=== PATIENT | female | born 1955 | race Caucasian/White ===

== ENCOUNTER 2017-04-07 11:05 | Inpatient (IN) | payer OTHER ==
[~2017-04-07] VITALS: Ht 154.9 cm; Wt 66.4 kg
[~2017-04-07 11:05] MED LIST: ADVAIR DISKUS1 UNIT INH; AMITRIPTYLINE100 M1 PO; ASPIRIN EC81 M1 PO; ATORVASTATIN CA40 M1 PO; BENZTROPINE MESY1 M1 PO; HYDRODIURIL 2525 MG PO; LAMICTAL XR100 M1 PO; LAMOTRIGINE200 MG PO; LYRICA200 MG PO; LYRICA75 M1 PO; PROTONIX40 M3 PO; RISPERDAL1 M1 PO; SIMVASTATIN40 MG PO; SYMBICORT 16010.2 GM INH; TOPAMAX100 M1 PO; TRAMADOL HYDROC50 MG PO; TRAZODONE HCL100 M1 PO; TRAZODONE HCL50 MG PO; VITAMIN B6200 M1
[2017-04-07 12:02] LABS: ABSOLUTE BASOPHIL COUNT 0 /CUMM (0.0-0.2); ABSOLUTE EOSINOPHIL COUNT 0.1 /CUMM (0.0-0.7); ABSOLUTE GRANULOCYTE CT 6.3 /CUMM (1.4-6.5); ABSOLUTE LYMPH COUNT 0.9 /CUMM (1.2-3.4); ABSOLUTE MONOCYTE COUNT 0.5 /CUMM (0.10-0.60); BASOPHIL % 0.3 % (0.0-2.0); EOSINOPHIL % 1.3 % (0-5); HEMATOCRIT 36.7 % (37-47); MEAN CORPUSCULAR HGB 36.5 PG (27.0-31.0); MEAN CORPUSCULAR HGB CONC 34.2 G/DL (33.0-37.0); MEAN PLATELET VOLUME 7.1 FL (7.4-10.4); PLATELET COUNT 262 /CUMM (130-400); RBC DISTRIBUTION WIDTH 14.9 % (11.5-14.5); RED BLOOD CELL CT 3.43 /CUMM (4.20-5.40); WHITE BLOOD CELL COUNT 7.8 /CUMM (4.8-10.8)
[2017-04-07] MEDS ORDERED: ADVAIR 250-501 EACH INH (12:06)
[2017-04-07] MEDS ORDERED: LYRICA75 M1 PO (12:08)
[2017-04-07] MEDS ORDERED: OXYCODONE HCL5 M1 PO (12:08)
[2017-04-07] MEDS ORDERED: MIRALAX17 G1 PO (12:09)
[2017-04-07] MEDS ORDERED: PROCHLORPERAZIN10 MG PO (12:10)
[2017-04-07] MEDS ORDERED: SIMVASTATIN40 M1 PO (12:11)
[2017-04-07] MEDS ORDERED: TRAMADOL HCL50 M1 PO (12:12)
--- NOTE | 2017-04-07 12:35 | ED PSYCHIATRIC COMPLAINT ---
History of Present Illness General Chief Complaint: Psychiatric Related Complaint Stated Complaint: BIBA SI Source: patient, old records, EMS Exam Limitations: no limitations Vital Signs & Intake/Output Vital Signs & Intake/Output Vital Signs Date Time Temp Pulse Resp B/P B/P Pulse O2 O2 Flow FiO2 Mean Ox Delivery Rate 04/08 0649 97.7 69 16 125/61 98 Room Air 04/08 0107 98.5 73 18 120/70 95 Room Air 04/07 2245 98.1 73 18 115/45 95 Room Air 04/07 2045 98.4 82 18 113/59 98 Room Air 04/07 1846 98.4 69 19 127/55 97 Room Air 04/07 1440 97.8 70 15 122/60 98 Room Air 04/07 1109 97.7 96 18 105/53 98 Room Air ED Intake and Output 04/08 0000 04/07 1200 Intake Total Output Total 200 Balance -200 Output, Urine 200 Allergies Coded Allergies: codeine (Intermediate, ITCHING 04/07/17) buspirone (From BUSPAR) (CANT SPEAK 04/07/17) lurasidone (From LATUDA) (SEIZURE 04/07/17) Reconcile Medications Aspirin (Ecotrin*) 81 MG TABLET.DR 1 TAB PO DAILY HEART HEALTH (Reported) Benztropine Mesylate 1 MG TABLET 1 TAB PO BID MENTAL HEALTH (Reported) Budesonide/Formoterol Fumarate (Symbicort 160-4.5 Mcg Inhaler) 160 MCG-4.5 MCG/ ACTUATION HFA.AER.AD 2 PUF INH BID COPD (Reported) Fluticasone/Salmeterol (Advair 250-50 Diskus) 250 MCG-50 MCG/DOSE BLST.W.DEV 1 PUF INH BID BREATHING PROBLEMS (Reported) Lamotrigine (Lamictal XR) 100 MG TAB.ER.24 1 TAB PO QPM MENTAL HEALTH ( Reported) Oxycodone HCl 5 MG TABLET 1-2 TAB PO Q4 HRS NEEDED PRN PAIN (Reported) Pantoprazole Sodium (Protonix) 40 MG TABLET.DR 1 TAB PO DAILY GERD (Reported) Polyethylene Glycol 3350 (Miralax) 17 GRAM POWD.PACK 1 PAC PO DAILY CONSTIPATION (Reported) dissolve in water Pregabalin (Lyrica) 75 MG CAPSULE 1 CAP PO BID PAIN (Reported) Prochlorperazine Maleate 10 MG TABLET 1 TAB PO Q6 PRN NAUSEA/VOMITING ( Reported) Risperidone (Risperdal) 1 MG TABLET 5 TAB PO QPM MENTAL HEALTH (Reported) Simvastatin (Simvastatin*) 40 MG TABLET 1 TAB PO QPM CHOLESTEROL (Reported) Topiramate (Topamax) 100 MG TABLET 1 TAB PO BID MENTAL HEALTH (Reported) Tramadol HCl 50 MG TABLET 1 TAB PO Q6P PRN PAIN (Reported) Trazodone HCl 100 MG TABLET 2 TAB PO QPM SLEEP (Reported) Triage Note: PT TO ED BY AMBULANCE VOLUNTARILY FROM HOME WITH +SI. HAS PLAN TO JUMP OFF HER DECK. UNDERGOING TX FOR LUNG CA. DENIES MEDICAL COMPLAINTS. [facility] CALLED 911 AFTER PT MADE SI COMMENT TO THEM Triage Nurses Notes Reviewed? yes Onset: Just prior to arrival Duration: day(s):, continues in ED, getting worse Timing: recent history Severity: moderate, severe Associated Symptoms: anxiety, impaired concentration, insomnia, suicidal ideation LMP (ages 10-50): post menopausal : No Patient currently breastfeeds: No HPI: Prior to admission patient reports worsening auditory hallucinations commanding her to kill herself with insomnia anorexia difficulty concentrating and fatigue. She denies fever chills nausea vomiting diarrhea abdominal pain chest pain shortness of breath headache dysuria rash bleeding homicidal ideation visual hallucination. (Sly Lowe MD) Past History Travel History Traveled to [place] past 21 day No Medical History Any Pertinent Medical History? 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 No (Sly Lowe MD) Review of Systems Review of Systems Constitutional: Reports: no symptoms. EENTM: Reports: no symptoms. Respiratory: Reports: no symptoms. Cardiovascular: Reports: no symptoms. GI: Reports: no symptoms. Genitourinary: Reports: no symptoms. Musculoskeletal: Reports: no symptoms. Skin: Reports: no symptoms. Neurological/Psychological: Reports: see HPI, anxiety, confusion, depressed. Hematologic/Endocrine: Reports: no symptoms. Immunologic/Allergic: Reports: no symptoms. All Other Systems: Reviewed and Negative (Sly Lowe MD) Physical Exam Physical Exam General Appearance: well developed/nourished, alert, awake, anxious, moderate distress, obese Head: atraumatic, normal appearance Eyes: Bilateral: normal appearance, PERRL, EOMI. 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 yes 1 Depression/Hopelessness? yes 2 Previous Attempts/Psych Care yes 1 Rational Thinking Loss? yes 2 Single//? yes 1 Social Support? has support 0 Stated Future Intent? yes 2 Total 9 SAD PERSONS Done? yes (Sly Lowe MD) Progress Differential Diagnosis: drug intoxication, drug overdose, drug withdrawal, electrolyte abnormality, hypoglycemia Plan of Care: Orders Procedure Date/time Status Admit to inpatient 04/08 1102 Active Continuous Observation Monitor 04/08 0800 Active Regular Diet 04/07 D Active ED CRISIS PSYCH CONSULT 04/07 1218 Active Continuous Observation Monitor 04/07 1147 Active URINE DRUGS OF ABUSE 04/07 1142 Complete ETHANOL 04/07 1142 Complete COMPREHENSIVE METABOLIC PANEL 04/07 1142 Complete CBC WITHOUT DIFFERENTIAL 04/07 1142 Complete Current Medications Sig/Ronnie Start time Last Medication Dose Stop Time Status Admin Atorvastatin Calcium 20 MG 1700 04/08 1700 UNVr 04/07 (Lipitor) 1921 Lamotrigine 100 MG ONCE ONE 04/08 1100 UNVr (LaMICtal) 04/08 1101 Benztropine Mesylate 1 MG BID 04/07 2200 UNVr 04/08 (Cogentin 1 MG 1052 Tablet) Budesonide/ 2 PUF BID 04/07 2199 AC 04/08 Formoterol Fumarate 1052 (Symbicort) Pregabalin 75 MG BID 04/07 2199 UNVr (Lyrica) Risperidone 5 MG QPM 04/07 2199 UNVr 04/07 (Risperidone) 2053 Topiramate 100 MG BID 04/07 2199 UNVr (Topamax) Trazodone HCl 200 MG QPM 04/07 2199 UNVr 04/07 (Desyrel) 2053 Omeprazole 40 MG DAILY 04/07 1806 UNVr (Prilosec) Aspirin Buffered 81 MG DAILY 04/07 1805 UNVr 04/08 (Ecotrin) 1052 Laboratory Tests 04/07/17 1149: Anion Gap 10, Estimated GFR > 60, BUN/Creatinine Ratio 14.3, Glucose 122 H, Calcium 9.5, Total Bilirubin 0.2, AST 11 L, ALT 20, Alkaline Phosphatase 92, Total Protein 6.5, Albumin 3.8, Globulin 2.7, Albumin/Globulin Ratio 1.4, CBC w Diff NO MAN DIFF REQ, RBC 3.43 L, MCV 107.0 H, MCH 36.5 H, MCHC 34.2, RDW 14.9 H, MPV 7.1 L, Gran % 81.0 H, Lymphocytes % 11.5 L, Monocytes % 5.9, Eosinophils % 1.3, Basophils % 0.3, Absolute Granulocytes 6.3, Absolute Lymphocytes 0.9 L, Absolute Monocytes 0.5, Absolute Eosinophils 0.1, Absolute Basophils 0, Serum Alcohol < 10.0 04/07/17 1146: Urine Opiates Screen < 100.00, Methadone Screen < 40, Barbiturate Screen < 60, Ur Phencyclidine Scrn < 6.00, Amphetamines Screen < 100, U Benzodiazepines Scrn < 85, Urine Cocaine Screen < 50, Urine Cannabis Screen < 5.00 04/08 7:08 AM PATIENT SIGNED OUT TO ME BY DR NELSON, PENDING CRISIS EVALUATION. 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 Patient signed out to Dr. Nelson at shift twisting frame changer after an uneventful emergency department stay during the afternoon shift. (Seda BECKER,Phan Nobles) Hand-Off Endorsed To: Elizabeth Kyle MD Endorsed Time: 0700 Pending: consult (Leslie BECKER,Jorge Barry) Departure Departure Disposition: STILL A PATIENT Condition: Stable Clinical Impression Primary Impression: Depression with suicidal ideation Secondary Impressions: Auditory hallucinations Referrals: Judson Montoya MD (PCP/Family) Departure Forms: Customer Survey General Discharge Information (Sly Lowe MD) Departure Time of Disposition: 1103 Psych Admission Note Psychiatric Admission: I have seen and evaluated VANI DONOVAN. I have also reviewed all the pertinent lab results and diagnostic results. VANI DONOVAN will be admitted to our inpatient Psychiatric unit for treatment and care. (Elizabeth Kyle MD) ED Attending Observation Initial Observation Note: I have seen and personally examined VANI DONOAVN on 04/07/17 at 1527. I agree with the current emergency department documentation. The disposition (admission or discharge) is uncertain at this time, she needs a period of observation for the following reason(s): The ED Nurse caring for this patient has been personally informed as to what the patient is being observed for. (Sly Lowe MD)
--- NOTE | 2017-04-07 14:50 | ED PSYCH CRISIS CONSULTATION ---
See Addendum Crisis Consult Basic Assessment Date of Consult: 04/07/17 Responsible Person/Accompanied By: BIBA/Self Insurance Authorization: Insurance #1: Insurance name: MEDICARE WELLCARE Phone number: Policy number: [id number] Group number: [id number] Authorization number: ED Provider: Patient's ED Provider: Sly Lowe MD Primary Care Physician: Patient's PCP: Judson Montoya MD PCP's Chief Complaint: Psychiatric Related Complaint Patient's Quote: "I'm hearing voices to hurt myself." Present Illness: Pt. is a 62 y.o. retired, female BIBA to ED presenting with +SI and hearing command halucinations to hurt herself. Pt. stated that her plan would be to jump off her back porch and that she was very close to doing so today. Pt. reported hearing these voices for the past week and started feeling depressed and anxious at the same time. Pt. rated her level of depression on a scale of 0 to 10 (10 being the most severe) as a 10 and her level of anxiety on a scale of 0 to 10 as an 8. Pt. reported that she had a nervous breakdown at age 25 and heard command hallucinations to hurt herself at the time but the voices stopped at some point. When asked what helped the voices stop, the pt. said she didn't know. Pt. denies HI and VH. Pt. stated she is on Risperidone, Limictal and other meds for moods that she has been compliant with but feels that they aren't currently helping. Pt. stated her meds "shut the voices down" and then she hears the voices when she wakes up in the morning but then stated that she hears the voices all day. Pt. reported decreased appetite and poor sleep due to the voices. Pt. lives with her 32 y.o. son, Quirino, with whom she gets along with and is concerned for her. Pt. stated that she wants inpatient tx. Pt. is currently receiving outpatient tx. at [facility] and has been there for the past 10 years. Pt. noted attending IOP during 2012 but could not recall why she was attending. Pt. also noted attending inpatient unit once in the past for Depression. Pt. reported being diagnosed with MDD and mood disorders. Pt.' s tox. screen was negative and the pt. denies any currenty drug or alcohol use but admits to using in the '. Pt. received SA tx. at [facility] ( [facility] in [place], [place] in 1992 and reported the tx. was helpful. Pt. also finished tx. for Cancer in January 2017. Case reviewed with Dr. Mackenzie who reccomended inpatient tx. Patient's Address: [address] [place] [address] Other Phone Number: Who Do You Live With? Son Family/Informants Interviewed: pt unable to participate Allergies - Coded Allergies: codeine (Intermediate, ITCHING 04/07/17) buspirone (From BUSPAR) (CANT SPEAK 04/07/17) lurasidone (From LATUDA) (SEIZURE 04/07/17) (Misty Duran) Current Medications - Scheduled Medications Aspirin (Ecotrin*) 81 MG TABLET.DR 1 TAB PO DAILY HEART HEALTH (Reported) Entered as Reported by Elma Barba on 09/22/16 1231 Last Taken: 04/08/17 1000 Benztropine Mesylate 1 MG TABLET 1 TAB PO BID MENTAL HEALTH (Reported) Entered as Reported by Elma Barba on 09/22/16 1230 Last Taken: 04/08/17 1000 Budesonide/Formoterol Fumarate (Symbicort 160-4.5 Mcg Inhaler) 160 MCG-4.5 MCG/ ACTUATION HFA.AER.AD 2 PUF INH BID COPD (Reported) Entered as Reported by Elma Barba on 09/22/16 1231 Last Taken: 04/08/17 1000 Fluticasone/Salmeterol (Advair 250-50 Diskus) 250 MCG-50 MCG/DOSE BLST.W.DEV 1 PUF INH BID BREATHING PROBLEMS #60 (Reported) Entered as Reported by Masoud Eisenberg on 04/07/17 1206 Last Taken: 04/07/17 2200 Lamotrigine (Lamictal XR) 100 MG TAB.ER.24 1 TAB PO QPM MENTAL HEALTH ( Reported) Entered as Reported by Elma Barba on 09/22/16 1229 Last Taken: 04/08/17 1300 Pantoprazole Sodium (Protonix) 40 MG TABLET.DR 1 TAB PO DAILY GERD (Reported) Entered as Reported by Elma Barba on 09/22/16 1232 Polyethylene Glycol 3350 (Miralax) 17 GRAM POWD.PACK 1 PAC PO DAILY CONSTIPATION (Reported) Entered as Reported by Masoud Eisenberg on 04/07/17 1209 Last Taken: 04/08/17 1300 Pregabalin (Lyrica) 75 MG CAPSULE 1 CAP PO BID PAIN (Reported) Entered as Reported by Masoud Eisenberg on 04/07/17 1208 Risperidone (Risperdal) 1 MG TABLET 5 TAB PO QPM MENTAL HEALTH (Reported) Entered as Reported by Elma Barba on 09/22/16 1230 Last Taken: 04/07/17 2200 Simvastatin (Simvastatin*) 40 MG TABLET 1 TAB PO QPM CHOLESTEROL (Reported) Entered as Reported by Masoud Eisenberg on 04/07/17 1211 Last Taken: 04/07/17 1700 Topiramate (Topamax) 100 MG TABLET 1 TAB PO BID MENTAL HEALTH (Reported) Entered as Reported by Emla Barba on 09/22/16 1229 Trazodone HCl 100 MG TABLET 2 TAB PO QPM SLEEP (Reported) Entered as Reported by Elma Barba on 09/22/16 1231 Last Taken: 04/07/17 2200 Scheduled PRN Medications Oxycodone HCl 5 MG TABLET 1-2 TAB PO Q4 HRS NEEDED PRN PAIN #100 (Reported ) Entered as Reported by Masoud Eisenberg on 04/07/17 1208 Prochlorperazine Maleate 10 MG TABLET 1 TAB PO Q6 PRN NAUSEA/VOMITING ( Reported) Entered as Reported by Masoud Eisenberg on 04/07/17 1210 Tramadol HCl 50 MG TABLET 1 TAB PO Q6P PRN PAIN (Reported) Entered as Reported by Masoud Eisenberg on 04/07/17 1212 (Johan Lyons LCSW) Past History Past Medical History Neurological: NONE EENT: NONE Cardiovascular: CAD, hypertension Respiratory: COPD, emphysema Gastrointestinal: NONE Hepatic: NONE Renal: NONE Musculoskeletal: NONE Psychiatric: anxiety, depression Endocrine: NONE Blood Disorders: NONE 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 Past Surgical History Surgical History: non-contributory (115) Psychiatric Treatment History Psych Treatment Psychiatric Treatment Yes Inpatient Treatment Yes Outpatient Treatment Yes Location of Treatment [facility] Reason for Treatment Depression Dates of Treatment In: 01/07/12-01/12/12 and 06/01/12-06/07/12 Response to Treatment Unknown Diagnosis by History: Depressive Dis NOS Substance Use/Abuse History Drug Use/Abuse 1 Substances Used/Abused Yes Substance Used/Abused Heroin First Use 28 Last Used 1992 How much used/taken 2 bags How often Weekends For how long Unknown Route of use Unknown Drug Use/Abuse 2 Substances Used/Abused Yes Substance Used/Abused Crack Cocaine First Use 25 Last Used 1992 How much used/taken 2 bags How often Weekends For how long Unknown Route of use Smoke Drug Use/Abuse 3 Substances Used/Abused Yes Substance Used/Abused Marijuana First Use 15 Last Used 1991 How much used/taken 1 joint How often Weekends For how long Unknown Route of use Smoke Substance Abuse Treatment Substance Abuse Treatment Past Substance Abuse [place] Yes Location of Treatment [place], [place] Reason for Treatment Polysubstance Dates of Treatment 1992 Response to Treatment "Helpful" (Misty Duran) Current Mental Status Mental Status Orientation: Person, Place, Situation Affect: Flat Speech: WNL Neuro-vegetative: Appetite Decreased, Sleep Disturbance Appearance Appearance- Dress/Hygiene: Patient was dressed in blue hospital scrubs and wearnig a pink hat. Behaviors Thought Process: WNL Thought Content: Auditory Hallucinations Insight: Fair SI/HI Risk Assessment Current Suicidal Ideation/Att Yes Current Homicidal Ideation/Attempts No Degree of Intent: Plan Danger To: Self Gravely Disabled: Poor Impulse Control, Poor Judgment Risk Factors: high anxiety/distress, SA/MH hospitalized, substance abuse, poor impulse control PTSD Checklist PTSD Done? patient declined ED Management Sitter: Yes Restraints: No (Misty Duran) DSM5/PS Stressors/Medical Prob Diagnosis' (DSM 5, Stressors, Medical): MDD, with psychotic features (F32.3) Opioid Use D/O (F11.20) Stimulant Use D/O (F14.20) Cannabis Use D/O (F12.20) Current GAF: 21 (Misty Duran) Departure Disposition Referrals Judson Montoya MD (PCP/Family) (Misty Duran) Addendum Addendum SW met with the patient for the evening reassessment. The patient was lying in bed, with the covers pulled up to her neck. She states that she continues to feel depressed (rating it a 10 out of 10, 10 being the most severe) and anxious (rating it a 9 out of 10, 10 being the most severe). The patient currently denies any suicidal or homicidal ideation. She continues to endorse command auditory hallucinations, noting that they are negative, swearing and telling her that "they will get her when she goes home." She is aware that the plan is to hold her over night in the ED and to look for an inpatient psychiatric placement in the AM. The case was discussed with and he is in agreement with the plan. (Ajay MUÑOZ,Gladis) Addendum pt seen by crisis this morning for reassessment. Pt continues to verbalize depression, anxiety and AH. Pt continues to express need for inpatient treatment. Case reviewed with Dr Acosta with pt to be admitted to [facility]. Pt in agreement with plan and has signed voluntary admission form. (Eloy MUÑOZ,Johan)
[2017-04-08 14:19] VITALS: BP 106/63
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
--- NOTE | 2017-04-08 14:51 | History & Physical ---
General Information and HPI MD Statement: I have seen and personally examined VANI DONOVAN and documented this H&P. The patient is a 62 year old F who presented with a patient stated chief complaint of hearing voices Source of Information: patient Exam Limitations: no limitations History of Present Illness: 62-year-old female with past medical history significant for anxiety, depression , history of lung cancer status post chemoradiation, history of hyperlipidemia who was admitted to Inpatient Psychiatry with auditory hallucinations. Patient claims that she was hearing voices that were telling her to kill herself. She also had a plan and wants to jump out of the second floor from her building. She did not implement the plan. She thinks that her medications are not working and need to be changed. She has no homicidal ideation. She currently denies any aches or pains. She has no fevers or chills, cough or shortness of breath. She denies any urinary problems. She claims that she follows with Dr. Yi from oncology and has been told that that the cancer has not metastasized and that she has completed the treatment for now. Allergies/Medications Allergies: Coded Allergies: codeine (Intermediate, ITCHING 04/07/17) buspirone (From BUSPAR) (CANT SPEAK 04/07/17) lurasidone (From LATUDA) (SEIZURE 04/07/17) Home Med list Aspirin (Ecotrin*) 81 MG TABLET.DR 1 TAB PO DAILY HEART HEALTH (Reported) Benztropine Mesylate 1 MG TABLET 1 TAB PO BID MENTAL HEALTH (Reported) Budesonide/Formoterol Fumarate (Symbicort 160-4.5 Mcg Inhaler) 160 MCG-4.5 MCG/ ACTUATION HFA.AER.AD 2 PUF INH BID COPD (Reported) Fluticasone/Salmeterol (Advair 250-50 Diskus) 250 MCG-50 MCG/DOSE BLST.W.DEV 1 PUF INH BID BREATHING PROBLEMS (Reported) Lamotrigine (Lamictal XR) 100 MG TAB.ER.24 1 TAB PO QPM MENTAL HEALTH ( Reported) Oxycodone HCl 5 MG TABLET 1-2 TAB PO Q4 HRS NEEDED PRN PAIN (Reported) Pantoprazole Sodium (Protonix) 40 MG TABLET.DR 1 TAB PO DAILY GERD (Reported) Polyethylene Glycol 3350 (Miralax) 17 GRAM POWD.PACK 1 PAC PO DAILY CONSTIPATION (Reported) dissolve in water Pregabalin (Lyrica) 75 MG CAPSULE 1 CAP PO BID PAIN (Reported) Prochlorperazine Maleate 10 MG TABLET 1 TAB PO Q6 PRN NAUSEA/VOMITING ( Reported) Risperidone (Risperdal) 1 MG TABLET 5 TAB PO QPM MENTAL HEALTH (Reported) Simvastatin (Simvastatin*) 40 MG TABLET 1 TAB PO QPM CHOLESTEROL (Reported) Topiramate (Topamax) 100 MG TABLET 1 TAB PO BID MENTAL HEALTH (Reported) Tramadol HCl 50 MG TABLET 1 TAB PO Q6P PRN PAIN (Reported) Trazodone HCl 100 MG TABLET 2 TAB PO QPM SLEEP (Reported) Past History Travel History Traveled to [place] past 21 day No Medical History Neurological: NONE EENT: NONE Cardiovascular: CAD, hypertension Respiratory: COPD, emphysema Gastrointestinal: NONE Hepatic: NONE Renal: NONE Musculoskeletal: NONE Psychiatric: anxiety, depression Endocrine: NONE Blood Disorders: NONE Cancer(s): R LUNG CA SAP ADMINISTRATOR/Reproductive: NONE History of MRSA: No History of VRE: No History of CDIFF: No Isolation History: Standard Influenza Vaccine: 03/10/17 Surgical History Surgical History: non-contributory (115) Past Family/Social History Family History Relations & Conditions if any MOTHER Relation not specified for: FH: cancer Psychosocial History Where do you live? Home ETOH Use: denies use Illicit Drug Use: denies illicit drug use Review of Systems Review of Systems Constitutional: Reports: see HPI. EENTM: Reports: see HPI. Cardiovascular: Reports: see HPI. Respiratory: Reports: see HPI. GI: Reports: see HPI. Musculoskeletal: Reports: see HPI. Neurological/Psychological: Reports: see HPI. Exam & Diagnostic Data Last 24 Hrs of Vital Signs/I&O Vital Signs Date Time Temp Pulse Resp B/P B/P Pulse O2 O2 Flow FiO2 Mean Ox Delivery Rate 04/08 1419 98.0 78 106/63 04/08 1322 97.9 83 20 118/56 97 04/08 0649 97.7 69 16 125/61 98 Room Air 04/08 0107 98.5 73 18 120/70 95 Room Air 04/07 2245 98.1 73 18 115/45 95 Room Air 04/07 2045 98.4 82 18 113/59 98 Room Air 04/07 1846 98.4 69 19 127/55 97 Room Air Intake & Output 04/08 1600 04/08 0800 04/08 0000 Intake Total Output Total Balance Patient 146 lb Weight Physical Exam General Appearance Alert, Oriented X3, Cooperative, No Acute Distress Skin No Rashes HEENT PERRLA Neck Supple Cardiovascular Regular Rate, Normal S1, Normal S2 Lungs Clear to Auscultation Abdomen Normal Bowel Sounds, Soft, No Tenderness Neurological Cranial Nerves II through XII: Intact Last 24 Hrs of Labs/Vishal: Laboratory Tests 04/07 04/07 1149 1146 Chemistry Sodium (137 - 145 mmol/L) 141 Potassium (3.5 - 5.1 mmol/L) 3.9 Chloride (98 - 107 mmol/L) 104 Carbon Dioxide (22 - 30 mmol/L) 27 Anion Gap (5 - 16) 10 BUN (7 - 17 mg/dL) 10 Creatinine (0.5 - 1.0 mg/dL) 0.7 Estimated GFR (>60 ml/min) > 60 BUN/Creatinine Ratio (7 - 25 %) 14.3 Glucose (65 - 99 mg/dL) 122 H Calcium (8.4 - 10.2 mg/dL) 9.5 Total Bilirubin (0.2 - 1.3 mg/dL) 0.2 AST (14 - 36 U/L) 11 L ALT (9 - 52 U/L) 20 Alkaline Phosphatase (<127 U/L) 92 Total Protein (6.3 - 8.2 g/dL) 6.5 Albumin (3.5 - 5.0 g/dL) 3.8 Globulin (1.9 - 4.2 gm/dL) 2.7 Albumin/Globulin Ratio (1.1 - 2.2 %) 1.4 Hematology CBC w Diff NO MAN DIFF REQ WBC (4.8 - 10.8 /CUMM) 7.8 RBC (4.20 - 5.40 /CUMM) 3.43 L Hgb (12.0 - 16.0 G/DL) 12.5 Hct (37 - 47 %) 36.7 L MCV (81.0 - 99.0 FL) 107.0 H MCH (27.0 - 31.0 PG) 36.5 H MCHC (33.0 - 37.0 G/DL) 34.2 RDW (11.5 - 14.5 %) 14.9 H Plt Count (130 - 400 /CUMM) 262 MPV (7.4 - 10.4 FL) 7.1 L Gran % (42.2 - 75.2 %) 81.0 H Lymphocytes % (20.5 - 51.1 %) 11.5 L Monocytes % (1.7 - 9.3 %) 5.9 Eosinophils % (0 - 5 %) 1.3 Basophils % (0.0 - 2.0 %) 0.3 Absolute Granulocytes (1.4 - 6.5 /CUMM) 6.3 Absolute Lymphocytes (1.2 - 3.4 /CUMM) 0.9 L Absolute Monocytes (0.10 - 0.60 /CUMM) 0.5 Absolute Eosinophils (0.0 - 0.7 /CUMM) 0.1 Absolute Basophils (0.0 - 0.2 /CUMM) 0 Toxicology Urine Opiates Screen (>2000 NG/ML) < 100.00 Methadone Screen (>300 NG/ML) < 40 Barbiturate Screen (>200 NG/ML) < 60 Ur Phencyclidine Scrn (>25 NG/ML) < 6.00 Amphetamines Screen (>1000 NG/ML) < 100 U Benzodiazepines Scrn (>200 NG/ML) < 85 Urine Cocaine Screen (>300 NG/ML) < 50 Urine Cannabis Screen (>50 NG/ML) < 5.00 Serum Alcohol (<10 MG/DL) < 10.0 Assessment/Plan Assessment: 62-year-old female with past medical history significant for anxiety, depression , history of lung cancer status post chemoradiation, history of hyperlipidemia who was admitted to Inpatient Psychiatry with auditory hallucinations. I have reviewed her blood work. Patient will be continued on her inhalers, atorvastatin, aspirin. I jace leave the psych management up to psychiatrist. As Ranked By This Provider Problem List: 1. Auditory hallucinations 2. Lung cancer 3. Hyperlipidemia 4. Anxiety 5. Depression with suicidal ideation Miscellaneous Miscellaneous Documentation Attending Case Discussed With: Saundra Jiménez M.D. Primary Care Physician: Judson Montoya MD Patient sees these Specialists Psychiatrist Level of Patient Care: RYAN Zhu
[2017-04-08 15:47] VITALS: BP 111/65
[2017-04-08 19:49] VITALS: BP 110/56
[2017-04-09 07:41] VITALS: BP 108/56
--- NOTE | 2017-04-09 10:12 | CPS PROVIDER INIT ASMT PSYCH ---
Psychiatric Admission Dynamic Balancer Set Up Worker's Note Reviewed: Yes Patient Seen and Examined: Yes Identifying Information: Pt. is a 62 y.o. retired, female BIBA to ED presenting with +SI and hearing command halucinations to hurt herself. Chief Complaint: "I'm hearing voices to hurt myself." Reaction to Hospitalization: Voluntary admission History of Present Illness Onset of Illness: The patient has been under the care of care for the past 10 years. The onset of the current episode seems to have been more recent, the patient reported that she was experiencing command hallucinations with commands to jump out of her back porch. She reported that the voices started about a week before her presentation to the emergency department and they were progressively getting worse. Circumstances Leading to Admission: Command hallucinations and thoughts of suicide. Problem(s) Justifying Need for Admission: Hearing voices to suicide Other HPI: The patient reported that she had a nervous breakdown at age 25. And she has been in psychiatric treatment pretty much since Past Psychiatric History Past Diagnosis(es)- if any: Reportedly the previous diagnoses included major depressive disorder, severe with psychotic features Opioid use this use disorder in full sustained remission and Stimulant use disorder in full sustained remission and Cannabis use disorder in full sustained remission Past Precipitating Factors- if any: Psychosocial stress - Include inpatient and outpatient treatment Treatment History: The patient reported that her psychiatric history dates back to age 25 when she had her first nervous breakdown. Inpt at [facility]: 01/07/12-01/12/12 and 06/01/12-06/07/12 The patient has been with care for the past 10 years. The patient has had previous treatment with [facility]'s intensive outpatient program. History of Suicide Attempts or Gestures Patient denied history of prior suicide attempts Substance Abuse History: Patient has has history of multiple substance use disorder but she reportedly has been abstinent for more than 10 years now Allergies: Coded Allergies: codeine (Intermediate, ITCHING 04/07/17) buspirone (From BUSPAR) (CANT SPEAK 04/07/17) lurasidone (From LATUDA) (SEIZURE 04/07/17) Home Med List: Benztropine Mesylate 1 MG TABLET 1 TAB PO BID MENTAL HEALTH (Reported) Entered as Reported by Elma Barba on 09/22/16 1230 Last Taken: 04/08/17 1000 Budesonide/Formoterol Fumarate (Symbicort 160-4.5 Mcg Inhaler) 160 MCG-4.5 MCG/ ACTUATION HFA.AER.AD 2 PUF INH BID COPD (Reported) Entered as Reported by Elma Barba on 09/22/16 1231 Last Taken: 04/08/17 1000 Fluticasone/Salmeterol (Advair 250-50 Diskus) 250 MCG-50 MCG/DOSE BLST.W.DEV 1 PUF INH BID BREATHING PROBLEMS #60 (Reported) Entered as Reported by Masoud Eisenberg on 04/07/17 1206 Last Taken: 04/07/17 2200 Lamotrigine (Lamictal XR) 100 MG TAB.ER.24 1 TAB PO QPM MENTAL HEALTH ( Reported) Entered as Reported by Elma Barba on 09/22/16 1229 Last Taken: 04/08/17 1300 Pantoprazole Sodium (Protonix) 40 MG TABLET.DR 1 TAB PO DAILY GERD (Reported) Entered as Reported by Elma Barba on 09/22/16 1232 Polyethylene Glycol 3350 (Miralax) 17 GRAM POWD.PACK 1 PAC PO DAILY CONSTIPATION (Reported) Entered as Reported by Masoud Eisenberg on 04/07/17 1209 Last Taken: 04/08/17 1300 Pregabalin (Lyrica) 75 MG CAPSULE 1 CAP PO BID PAIN (Reported) Entered as Reported by Masoud Eisenberg on 04/07/17 1208 Risperidone (Risperdal) 1 MG TABLET 5 TAB PO QPM MENTAL HEALTH (Reported) Entered as Reported by Elma Barba on 09/22/16 1230 Last Taken: 04/07/17 2200 Simvastatin (Simvastatin*) 40 MG TABLET 1 TAB PO QPM CHOLESTEROL (Reported) Entered as Reported by Masoud Eisenberg on 04/07/17 1211 Last Taken: 04/07/17 1700 Trazodone HCl 100 MG TABLET 2 TAB PO QPM SLEEP - Include any medical condition(s) that may - impact the patient's recovery/remission Past Medical History: The patient reported that she is done with her cancer treatment. 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 History of MRSA: No History of VRE: No History of CDIFF: No Isolation History: Standard Influenza Vaccine: 03/10/17 Surgical History Surgical History: none Psychiatric Family/Social Hx Family History Psychiatric Illness: Patient's mother and father suffered from depression and anxiety The patient's son suffers from depression and the patient was not sure if he was also diagnosed with schizophrenia Substance Use: The patient's father was an alcoholic Suicides: The patient denied completed suicides in the family Social History Living Situation: Patient lives with her adult son Significant Relationships (family/friends): The patient's adult son Education: Some college Vocation/Occupation: Currently unemployed Legal: Denied legal entanglements Healthly Behaviors Screening Tobacco Screening Tobacco Use from ED Docu: Current Daily Use Daily Tobacco Use Amount/Type: =< 4 Cigarettes daily - If tobacco counseling indicated - the following topics are required. - #1 Recognizing dangerous situations. - #2 Coping Skills. - #3 Basic information about quitting. Status of Tobacco Cessation Counseling: #1, #2 AND #3 Completed Cessation Med Status Nicotine Gum Ordered Alcohol Screening - ETOH screen POS if BAL >=80 or Audit-C>= M4/F3 Audit-C Score from Diag Assess: 0 Blood Alcohol Level: Laboratory Tests 04/07 1149 Toxicology Serum Alcohol (<10 MG/DL) < 10.0 Alcohol Use Screening Results: Neg per Audit C &/or BAL - If ETOH counseling indicated - the following topics are required. - #1 Express concern about the patient's - drinking at unhealthy levels, include informing - of national norms for moderate drinking: - men <= 14 drinks/week, max 4 drinks/occasion - women <= 7 drinks/week, max 3 drinks/occasion - #2 Providing feedback, including linking alcohol to - negative physical effects (liver injury, hypertension) - negative emotional effects (relationship problems and - depression) - negative occupational consequences (reduced work - performance) - #3 Advising the patient to abstain from alcohol or - to drink below national norms for moderate drinking - (as listed above). Status of ETOH Use Counseling: N/A B/C NO ETOH Use Metabolic Screening - Screen if on a Neuroleptic Medication - Metabolic screening should include: - Blood Pressure, BMI, Glucose or Hgb A1c, & a - Lipid profile from within the past 365 days. Metabolic Screening Patient on a neuroleptic(s) . Enter below results for Hemoglobin A1C, and lipid panel if obtained during the last 365 days. BMI: 27.600 Blood Pressure: 108/56 Laboratory Results From [facility] (If applicable): Lab Cholesterol 145 MG/DL 02/19/17 0850 HDL Cholesterol 38 mg/dL L 02/19/17 0850 Hemoglobin A1c 5.6 % 02/19/17 0850 LDL Cholesterol, Calc 80 mg/dL 02/19/17 0850 Triglycerides 138 mg/dL 02/19/17 0850 Exam and Plan Mental Status Examination Ambulation Status: Steady gait Appearance: Patient was a woolen hat due to hair loss from chemotherpay Attitude towards examiner: Calm and cooperative Psychomotor activity: Normal psychomotor activity for age Behavior: No abnormal behaviors, no bizarre behaviors Quality of speech: Normal speech, not pressured, not slurred Affect: Constricted affect Mood: Depression 10 out of 10 anxiety 8 out of 10 Suicidal Ideation: Denied it was thoughts of suicide, she said it was command hallucinations of suicide. Homicidal Ideation: Denied violent thoughts or homicidal ideation Hallucinations: She hears a man's voice Paranoid/Delusional Material: She denies feeling paranoid, there were no delusions during the interview Difficulties with thought organization: There were no difficulties with thought organization Insight: Good insight Judgment: Good judgment Orientation: Alert and oriented to time place and person Cognition: The patient showed reasonably good attention and concentration and information processing Memory Function: There was no evidence of short-term memory impairment during the interview Estimate of intellectual functioning: Average Assets/Strengths Patient Identified Assets/Strengths: The patient is likable and honest Impression/Plan Impression and Plan: 62-year-old white female who was admitted to the inpatient psychiatric unit for reporting hearing a voice telling her to kill herself - Include all active medical diagnosis that require tx DSM 5 Diagnosis(es): 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 Factors: None identified
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
[2017-04-09 12:38] VITALS: BP 102/62
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
[2017-04-09 15:49] VITALS: BP 99/66
[2017-04-09 19:44] VITALS: BP 111/66
--- NOTE | 2017-04-10 07:46 | CP SOUTH PROGRESS NOTE PSYCH ---
Psych (Inpt) Progress Note Progress Note Vital Signs on 04/10/2017: Blood Pressure: 126/70mmHg; Pulse: 96/min. Temperature: 97.6 F Progress and treatment plan was discussed in the treatment team meeting this morning. The treatment team meeting included nursing staff, social work staff, group , activity , and milieu therapy staff (OTR/L) and psychiatrist. Mental Status Examination The patient was alert and oriented to time place and person. She reported that the last time she had hallucinations was last night. She reported that she is the same voice that she has been hearing which is a man's voice. She reported that the voice was cursing and using profanities. Patient was a woolen hat due to hair loss from chemotherapy. Her speech was normal , she was calm and cooperative. She showed normal psychomotor activity for age, there were no abnormal behaviors, no bizarre behaviors, Her affect was constricted, continues to report depression but she is reporting relative improvement She also reported relative improvement with her anxiety level. She denied thoughts of suicide in the past 24 hours she again clarified that she was not having thoughts of suicide and it was the command hallucinations that there are that were telling her to commit suicide as well as cursing her and using profanities. Denied violent thoughts or homicidal ideation, denies feeling paranoid, there were no delusions during the interview, there were no difficulties with thought organization, good insight, Good judgment, reasonably good attention and concentration and information processing, there was no evidence of short-term memory impairment during the interview Summary and risk assessment: 62-year-old white female who was admitted to the inpatient psychiatric unit for reporting hearing a voice telling her to kill herself Identified risk factors: Recent command hallucinations, with commands to kill self. Protective factors and risk mitigating factors: 1) Female, 2) Does not abuse alcohol or drugs No access to guns W She is not in a chronic severe pain The patient does not have history of previous suicide attempts There is no family history of completed suicides Diagnosis(es): F28: Other Specified Schizophrenia-Spectrum & Other Psychotic Disorder Treatment Plan Update: 1) Resume Lamotrigine 100 mg BID (may have been not continued in error ??) 2) Increase Zyprexa to 7.5 mg at bedtime 3) Reduce Risperidone to 3 mg at bedtime 4) Continue inpatient psychiatric care/safety checks every 15 minutes Nursing assessments, Vital signs, and Patient education Group therapy, Milieu therapy SUPERVISOR DISPLAY FABRICATION: biopsychosocial assessment, aftercare planning/ collateral information Psychiatrist to evaluate the patient's mental status daily and monitor medications daily Psychiatrist to evaluate the patient's mental status daily and monitor medications daily
[2017-04-10 08:09] VITALS: BP 126/70
[2017-04-10 12:11] VITALS: BP 114/68
--- NOTE | 2017-04-10 13:35 | SOCIAL WORKER PROG NOTE PSYCH ---
Social Work Progress Note Progress Note Deisy's son called to reschedule the family meeting. We rescheduled for Thursday 04/13 at 10am. He did confirm that there has been some difficult issues with the upstairs neighbors and that they had tried to kick in their door. He also said they were threatened. He shared that his Mom was very upset by everything that was going on and that frightened him. Spoke with Brianda Hammond at [facility] who also confirmed with their staff that there has been ongoing problems with neighbors. [facility] called the police and DCF. Met with Deisy this afternoon. She said she continues to hear the same voice. She said the voice has been swearing today. It seems to happen when she 's alone. She's been trying to combat it by talking to people and staying busy. She reports not sleeping too well last night. Complained of acid reflux. She is hoping the change in medicine will help with her symptoms. Reports no SI today. We talked about her considering a transition to IOP once she is discharged. She didn't seem interested and said she would rather not. She said she will think about it and let me know if she changes her mind. She is interested in me gathering more information from [facility] about the support group offered.
[2017-04-10 15:53] VITALS: BP 114/57
[2017-04-10 19:43] VITALS: BP 133/69
[2017-04-11 07:53] VITALS: BP 109/80
--- NOTE | 2017-04-11 11:39 | CP SOUTH PROGRESS NOTE PSYCH ---
Psych (Inpt) Progress Note Progress Note Include the following elements, when applicable: Involvement in the active treatment of the patient with behavioral observations of the patient and the patient's response to the treatment. Review of the ongoing treatment process in the context of the treatment plan. Indication of how multi-disciplinary staff members are carrying out the treatment plan. Plans for future interventions and recommendations for revision of the treatment plan. Liaison with other physicians/providers. Progress Note: Pt notes that she is feeling better this morning. AHs have occured throughout hospitalization but feels none this morning. She reports sleeping well. Denies SI or HI. Current Medications Sig/Ronnie Start time Last Medication Dose Route Stop Time Status Admin Acetaminophen 650 MG Q6P PRN 04/08 1200 AC PO Al Hydroxide/Mg 30 ML Q4-6 PRN PRN 04/08 1200 AC Hydroxide PO Albuterol Sulfate 2 PUF Q6P PRN 04/08 1200 AC INH Aspirin Buffered 81 MG DAILY@0800 04/09 0800 AC 04/11 PO 0819 Atorvastatin Calcium 20 MG 17004/08 1700 AC 04/10 PO 1704 Benztropine Mesylate 0.5 MG BID 04/08 2200 AC 04/11 PO 0819 Benztropine Mesylate 1 MG Q6P PRN 04/08 1200 AC PO Budesonide/ 2 PUF BID 04/08 2200 AC 04/11 Formoterol Fumarate INH 0819 Haloperidol 5 MG Q6P PRN 04/08 1200 AC PO Lamotrigine 100 MG BID 04/10 1012 AC 04/11 PO 0819 Lorazepam 1 MG Q6-PRN PRN 04/08 1500 AC PO Magnesium Hydroxide 30 ML AT BEDTIME PRN 04/08 1200 AC PO Nicotine 2 MG Q2 HRS NEEDED PRN 04/08 1500 AC PO Olanzapine 7.5 MG 22004/10 2200 AC 04/10 PO 2128 Polyethylene Glycol 17 GM DAILY@0804/08 1215 AC 04/11 PO 0819 Risperidone 3 MG QPM 04/10 220 AC 04/10 PO 2128 Trazodone HCl 150 MG QPM 04/08 220 AC 04/10 PO 2128 Vital Signs Date Time Temp Pulse Resp B/P B/P Pulse O2 O2 Flow FiO2 Mean Ox Delivery Rate 04/11 0753 97.3 97 109/80 04/10 1942 98.6 87 133/69 04/10 1553 81 114/57 04/10 1211 84 114/68 MSE General appearance: good hygiene and grooming though with wool hat one; Attitude: cooperative; Eye contact: appropriate; Movement: no psychomotor agitation or slowing; Speech: nl fluency, nl rate/rhythm, nl volume, nl prosody; Mood: "better" Affect: flat, appropriate, constricted, non-labile, congruent; Thought process: linear and goal-directed; Thought content: denied SI or HI, no paranoid ideation; Perception:+ hallucinations- auditory of voices saying curse words about her, denied visual, does not appear to be responding to internal stimuli; I/J: limited A/P: Pt with MDD with SI with psychotic features with improved psychotic sx. -Continue current medication regimen -Encourage integration into the milieu
[2017-04-11 12:11] VITALS: BP 102/65
[2017-04-11 15:39] VITALS: BP 110/57
[2017-04-11 19:47] VITALS: BP 121/61
[2017-04-12 07:29] VITALS: BP 106/62
--- NOTE | 2017-04-12 11:36 | CP SOUTH PROGRESS NOTE PSYCH ---
Psych (Inpt) Progress Note Progress Note Include the following elements, when applicable: Involvement in the active treatment of the patient with behavioral observations of the patient and the patient's response to the treatment. Review of the ongoing treatment process in the context of the treatment plan. Indication of how multi-disciplinary staff members are carrying out the treatment plan. Plans for future interventions and recommendations for revision of the treatment plan. Liaison with other physicians/providers. Progress Note: Pt notes that she is "better" today than yesterday. She continues to have AHs but much less loud and distressing. She notes that she slept well. Feels meds have been extremely helpful. Current Medications Sig/Ronnie Start time Last Medication Dose Route Stop Time Status Admin Acetaminophen 650 MG Q6P PRN 04/08 1200 AC PO Al Hydroxide/Mg 30 ML Q4-6 PRN PRN 04/08 1200 AC Hydroxide PO Albuterol Sulfate 2 PUF Q6P PRN 04/08 1200 AC INH Aspirin Buffered 81 MG DAILY@04/09 0800 AC 04/12 PO 0746 Atorvastatin Calcium 20 MG 17004/08 1700 AC 04/11 PO 1559 Benztropine Mesylate 0.5 MG BID 04/08 2200 AC 04/12 PO 0746 Benztropine Mesylate 1 MG Q6P PRN 04/08 1200 AC PO Budesonide/ 2 PUF BID 04/08 2200 AC 04/12 Formoterol Fumarate INH 0747 Haloperidol 5 MG Q6P PRN 04/08 1200 AC PO Lamotrigine 100 MG BID 04/10 1012 AC 04/12 PO 0746 Lorazepam 1 MG Q6-PRN PRN 04/08 1500 AC PO Magnesium Hydroxide 30 ML AT BEDTIME PRN 04/08 1200 AC PO Nicotine 2 MG Q2 HRS NEEDED PRN 04/08 1500 AC PO Olanzapine 7.5 MG 04/10 2200 AC 04/11 PO 2117 Polyethylene Glycol 17 GM DAILY@0804/08 1215 AC 04/12 PO 0746 Risperidone 3 MG QPM 04/10 220 AC 04/11 PO 211 Trazodone HCl 150 MG QPM 04/08 220 AC 04/11 PO 211 Vital Signs Date Time Temp Pulse Resp B/P B/P Pulse O2 O2 Flow FiO2 Mean Ox Delivery Rate 04/12 728 96.5 99 106/62 04/11 1947 97.8 89 121/61 04/11 1539 88 110/57 04/11 1211 96 102/65 MSE General appearance: good hygiene and grooming though with wool hat one; Attitude: cooperative; Eye contact: appropriate; Movement: no psychomotor agitation or slowing; Speech: nl fluency, nl rate/rhythm, nl volume, nl prosody; Mood: "better, even better" Affect: flat, appropriate, constricted, non-labile, congruent; Thought process: linear and goal-directed; Thought content: denied SI or HI, no paranoid ideation; Perception:+ hallucinations- auditory of voices saying curse words about her, but lower volume denied visual, does not appear to be responding to internal stimuli; I/J: limited A/P: Pt with MDD with SI with psychotic features with improved psychotic sx. -Continue current medication regimen -Encourage integration into the milieu
[2017-04-12 11:56] VITALS: BP 102/50
[2017-04-12 15:25] VITALS: BP 107/60
[2017-04-12 19:22] VITALS: BP 110/56
[2017-04-13 07:54] VITALS: BP 99/54
--- NOTE | 2017-04-13 08:58 | CP SOUTH PROGRESS NOTE PSYCH ---
Psych (Inpt) Progress Note Progress Note Vital Signs Date Time Temp Pulse B/P O2 Flow FiO2 Rate 04/13 0754 97.5 81 99/54 04/12 1922 98.6 83 110/56 04/12 1525 83 107/[address] Theodore's notes for the weekend of April 11 and April 12, 2017 The treatment team reviewed the patient's progress and treatment plan, and aftercare plan, and the team meeting this morning. The treatment team included: Nursing staff, social work staff, group and activity therapy staff, and psychiatrist MANUEL Olivas was alert, and she was oriented to time, place, and person. She showed good hygiene and grooming. She was calm and cooperative; There were no abnormal movements, no psychomotor agitation or slowing; Speech: nl fluency, nl rate/rhythm, nl volume, nl prosody; The patient reported that her mood has been "good"/she denied feeling too depressed, reported that her anxiety is low and manageable Affect: congruent; Thought process was linear and goal-directed; Deisy denied SI or HI, no paranoid ideation; Deisy reported significant reduction in hallucinations hallucinations- auditory of voices saying curse words about her, but lower volume She did not appear to be responding to internal stimuli A/P: Pt with MDD with SI with psychotic features with improved psychotic sx. -Continue current medication regimen Possible discharge in the next couple of days
--- NOTE | 2017-04-13 11:18 | SOCIAL WORKER PROG NOTE PSYCH ---
Social Work Progress Note Progress Note SW met with pt this morning. She presents as calm, alert and cooperative. She reports improved mood and generally feeling "good". She denies SI/HI/AH/VH. No presence of psychosis. Pt reports having a good weekend, read alot and slept well. Pt reports feeling she can be discharged soon. She discussed wanting to return to [facility] for outpatient treatment. Discussed feeling meeting with her son scheduled today for 10am but he is currently not here (11:15am). Plan to meet when he arrives or attempt to reschedule. Attempted to contact pt son Moe Romero [phone] but he has a voice mail box that is not set up. Will attempt again later.
[2017-04-13 12:18] VITALS: BP 107/67
[2017-04-13 15:55] VITALS: BP 98/56
[2017-04-13 19:53] VITALS: BP 116/60
[2017-04-14 07:35] VITALS: BP 125/78
--- NOTE | 2017-04-14 08:04 | CP SOUTH PROGRESS NOTE PSYCH ---
Psych (Inpt) Progress Note Progress Note Vital Signs Date Time Temp Pulse B/P 04/14 0735 97.6 85 125/78 04/13 195 98.5 85 116/60 The treatment team reviewed the patient's progress, inpatient treatment plan, and aftercare plan The treatment team included: Nursing staff, social work staff, Group and activity therapy staff, and psychiatrist Mental status examination: Deisy was alert, and she was oriented to time, place, and person. She showed good hygiene and grooming. She was calm and cooperative. There were no abnormal movements, no psychomotor agitation or slowing. Deisy's speech was normal/not pressured, not slurred Deisy reported that her mood has been "good" she denied feeling too depressed, reported that her anxiety is low and manageable Thought process was linear and goal-directed; Deisy denied SI or HI, no paranoid ideation; Deisy denied hallucinations in the past 24 hours Deisy did not appear to be responding to internal stimuli Assessment: Deisy is a 62-year-old white female who was admitted to the inpatient psychiatric unit at [facility] on 04/08/2017 Pt with MDD with SI with psychotic features with improved psychotic sx. Plan update: Discharge home at the well of the social sciences instructor granted that the patient has a solid discharge plan and follow-up appointments
--- NOTE | 2017-04-14 08:56 | Patient Discharge Instructions ---
Psych Discharge Inst General Discharge Information Reason for Admission: Deisy was admitted to the inpatient psychiatric unit because she was reporting command hallucinations to kill self Psy Discharge Primary Diag+ MDD, sever, with psychotic features, Unspecified Schizophrenia-Spectrum and Other Psychotic Disorder Psy Discharge Secondary Diag+ Rule out schizoaffective Disorder Summary Tests/Major Procedures Lab 25-OH Vitamin D Total 17.4 ng/ml L 09/21/13 0851 Cholesterol 145 MG/DL 02/19/17 0850 HDL Cholesterol 38 mg/dL L 02/19/17 0850 Hemoglobin A1c 5.6 % 02/19/17 0850 LDL Cholesterol, Calc 80 mg/dL 02/19/17 0850 Triglycerides 138 mg/dL 02/19/17 0850 Vitamin B12 > 1000 pg/mL H 06/10/16 1041 Studies Pending at DC: None Patient Instructions Contact Information Your Psychiatrist on [facility] was Yo Mackenzie MD * If you are experiencing an emergency related to this hospitalization, please call [phone] to contact the treating psychiatrist or the psychiatrist-on- call. * To Request a copy of your medical records, please contact the Medical Records Department at [phone]. * To request results of studies pending at the time of discharge, please call [phone]. * Continue your Medications until directed to stop by your Healthcare provider. General Medication Information Please continue to take your new medications and your continued home medications , unless otherwise indicated on your discharge medication list, or unless directed by your MD or CARDIAC CATH LAB MANAGER to stop them. Special Instructions Diet Regular Activity As Tolerated - Tobacco Use Treatment Offered Post DC Medications Offered: Script Given-See Med List Post DC Tobacco Treatment Plan: Refused Tobacco Tx Pgm - EtOH/Drug Use D/O Treatment Offered Post DC Medications Offered: NA-No EtOH/Drug Use D/O Post DC EtOH/SubAbuse TX Plan: NA-No EtOH/Drug Use D/O Metabolic Screening Patient on a neuroleptic(s) . Enter below results for Hemoglobin A1C, and lipid panel if obtained during the last 365 days. BMI: 27.600 Blood Pressure: 125/78 Laboratory Results From [facility] (If applicable): Lab Cholesterol 145 MG/DL 02/19/17 0850 HDL Cholesterol 38 mg/dL L 02/19/17 0850 Hemoglobin A1c 5.6 % 02/19/17 0850 LDL Cholesterol, Calc 80 mg/dL 02/19/17 0850 Triglycerides 138 mg/dL 02/19/17 0850 Advance Directives Does the Patient have Medical Advance Directives No/Refused further info Does Pt have Psychiatric Advance Directives? No/Refused further info Does Patient have a Designated Surrogate Decision Maker: No Information About Psychiatric Advance Directives Provided? Refused Discharge Plan Post Hospital Treatment Plan: [facility]
--- NOTE | 2017-04-14 09:49 | SOCIAL WORKER PROG NOTE PSYCH ---
Social Work Progress Note Progress Note Pt has follow up appointments with CARE providers 04/17/17 pm with Deanne Meier 05/06/17 9am with Katherine Velez APRN.
--- NOTE | 2017-04-14 11:44 | SOCIAL WORKER PROG NOTE PSYCH ---
Social Work Progress Note Progress Note Deisy reports no voices today. She feels that the medication change has been helpful. She denies any thoughts of self-harm. She is advocating for discharge today. Called her son Quirino to discuss. Had a phone conference with Deisy and her son. He just wants to ensure she is doing well. He is happy to have her back and has been preparing the house- cleaning and doing laundry. Discussed the issues with the upstairs neighbors. He stated they should start looking for alternative housing if things don't improve. He will call police if there are continued threats. He is willing to help his Mom get home today. He will see if he can get transportation here for 1pm. Informed him that Deisy has appts. with Care for this Thursday with her therapist and one for her prescriber Katherine Matute APRN on 05/06.
[2017-04-14] MEDS ORDERED: TRAZODONE HCL50 M1 PO (11:56)
[2017-04-14] MEDS ORDERED: SIMVASTATIN40 M1 PO (11:56)
[2017-04-14] MEDS ORDERED: ZYPREXA7.5 M1 PO (11:56)
[2017-04-14] MEDS ORDERED: LAMICTAL100 M2 PO (11:56)
[2017-04-14] MEDS ORDERED: NICORELIEF2 MG PO (11:56)
[2017-04-14] MEDS ORDERED: VENTOLIN HFA18 GM INH (11:56)
[2017-04-14] MEDS ORDERED: BENZTROPINE ME0.5 M1 PO (11:59)
[2017-04-14] MEDS ORDERED: RISPERIDONE3 M1 PO (11:59)
--- NOTE | 2017-04-14 12:14 | DISCHARGE SUMMARY REPORT-PSYCH ---
Visit Information Visit Dates/Diagnosis' Admission Date: 04/08/17 Discharge Date: 04/14/17 Reason for Admission: Deisy was admitted to the inpatient psychiatric unit because she was reporting command hallucinations to kill self Psy Discharge Primary Diag: MDD, sever, with psychotic features Unspecified Schizophrenia-Spectrum and Other Psychotic Disorder Psy Discharge Secondary Diag: Rule out schizoaffective Disorder Hospital Course Significant Lab Findings: 25-OH Vitamin D Total 17.4 ng/ml L 09/21/13 0851 Cholesterol 145 MG/DL 02/19/17 0850 HDL Cholesterol 38 mg/dL L 02/19/17 0850 Hemoglobin A1c 5.6 % 02/19/17 0850 LDL Cholesterol, Calc 80 mg/dL 02/19/17 0850 Triglycerides 138 mg/dL 02/19/17 0850 Vitamin B12 > 1000 pg/mL H 06/10/16 1041 Course Complications: Did not have any complications while she was on the inpatient psychiatric unit at [facility] Consultations: The patient had a history and physical examination performed when she was on the inpatient psychiatric unit, Assessment by Dr. Saundra Jiménez MD, on 04/13/2017: 62-year-old female with past medical history significant for anxiety, depression , history of lung cancer status post chemoradiation, history of hyperlipidemia who was admitted to Inpatient Psychiatry with auditory hallucinations. I have reviewed her blood work. Patient will be continued on her inhalers, atorvastatin, aspirin. I jace leave the psych management up to psychiatrist. Problem List: 1. Auditory hallucinations 2. Lung cancer 3. Hyperlipidemia 4. Anxiety 5. Depression with suicidal ideation Allergies: Coded Allergies: codeine (Intermediate, ITCHING 04/07/17) buspirone (From BUSPAR) (CANT SPEAK 04/07/17) lurasidone (From LATUDA) (SEIZURE 04/07/17) Hospital Course/TX Response: Initial impression and Plan on 04/09/2017: 62-year-old white female who was admitted to the inpatient psychiatric unit for reporting hearing a voice telling her to kill herself - Include all active medical diagnosis that require tx DSM 5 Diagnosis(es): F28: Other Specified Schizophrenia-Spectrum & Other Psychotic Disorder - Initial Tx Plan for Active Psych & Medical Conditions Treatment Plan: Inpatient psychiatric care Safety checks every 15 minutes Nursing assessments Vital signs Patient education Group therapy Milieu therapy Social work to do biopsychosocial assessment, aftercare planning/obtain collateral information Psychiatrist to evaluate the patient's mental status daily and monitor medications daily On 04/10/2017: 1) Resume Lamotrigine 100 mg BID (may have been not continued in error ??) 2) Increase Zyprexa to 7.5 mg at bedtime 3) Reduce Risperidone to 3 mg at bedtime 4) Continue inpatient psychiatric care/safety checks every 15 minutes Patient was seen by Dr. Theodore on the weekend of April 11 on April 12, 2017. There were no medication changes made I reevaluated the patient on April 13, 2017, she seems to be doing very well and reported that she is ready for discharge. She reported that she had some hallucinations on Thursday but denied hallucinations on Thursday or Thursday night The patient was reevaluated on April 14 and she seems to be in good spirits, she denied command hallucinations and denied thoughts of suicide and reported that she feels ready for discharge especially that tomorrow there is going to be a big snowstorm and if she stays she will not be able to leave until Thursday probably The patient however did not have any discharge barriers in my opinion and therefore was ready for discharge if aftercare plans were finalized Patient's condition on the day of discharge: Vital Signs Date Time Temp Pulse B/P 04/14 0735 97.6 85 125/78 The treatment team reviewed the patient's progress, inpatient treatment plan, and aftercare plan The treatment team included: Nursing staff, social work staff, Group and activity therapy staff, and psychiatrist Mental status examination: Deisy was alert, and she was oriented to time, place, and person. She showed good hygiene and grooming. She was calm and cooperative. There were no abnormal movements, no psychomotor agitation or slowing. Deisy's speech was normal/not pressured, not slurred Deisy reported that her mood has been "good" she denied feeling too depressed, reported that her anxiety is low and manageable Thought process was linear and goal-directed; Deisy denied SI or HI, no paranoid ideation; Deisy denied hallucinations in the past 24 hours Deisy did not appear to be responding to internal stimuli Assessment: Deisy is a 62-year-old white female who was admitted to the inpatient psychiatric unit at [facility] on 04/08/2017 Pt with MDD with SI with psychotic features with improved psychotic sx. Plan update: Discharge home Discharge HBIPS - Tobacco Use Treatment Offered Post DC Medications Offered: Script Given-See Med List Post DC Tobacco Treatment Plan: Refused Tobacco Tx Pgm - EtOH/Drug Use D/O Treatment Offered Post DC Medications Offered: NA-No EtOH/Drug Use D/O Post DC EtOH/SubAbuse TX Plan: NA-No EtOH/Drug Use D/O Metabolic Screening - Screen if on a Neuroleptic Medication - Metabolic screening should include: - Blood Pressure, BMI, Glucose or Hgb A1c, & a - Lipid profile from within the past 365 days. Metabolic Screening () Not Applicable, patient not on a neuroleptic. OR () Patient on a neuroleptic(s) . Enter below results for Hemoglobin A1C, and lipid panel if obtained during the last 365 days. BMI: 27.600 Blood Pressure: 125/78 Laboratory Results From [facility] (If applicable): Cholesterol 145 MG/DL 02/19/17 0850 HDL Cholesterol 38 mg/dL L 02/19/17 0850 Hemoglobin A1c 5.6 % 02/19/17 0850 LDL Cholesterol, Calc 80 mg/dL 02/19/17 0850 Triglycerides 138 mg/dL 02/19/17 0850 [ Discharge Instructions General Discharge Information Multiple Neuroleptics: The patient is being titrated from Risperidone gradually to Zyprexa, the process may take up to 12 weeks Discharge Diet Regular Discharge Activity As Tolerated DC Disposition: Home Referrals Ordered Referrals Provider Referral 04/17/17 For Providers: [Dr. Deanne Meier] For Groups: [facility] appt[facility] with Deanne Meier 04/17/17 2pm [address] [place] [address] Provider Referral 05/06/17 For Providers: [Katherine Matute APRN] For Groups: [[facility]] [facility] appt. with Katherine Matute APRN 05/06/17 9am [address] [place] [address] Prescriptions Stop taking the following medications: Lamotrigine (Lamictal XR) 100 MG TAB.ER.24 ORAL Every night Topiramate (Topamax) 100 MG TABLET ORAL TWICE DAILY Benztropine Mesylate (Benztropine Mesylate) 1 MG TABLET ORAL TWICE DAILY Risperidone (Risperdal) 1 MG TABLET ORAL Every night Trazodone HCl (Trazodone HCl) 100 MG TABLET ORAL Every night Pregabalin (Lyrica) 75 MG CAPSULE ORAL TWICE DAILY Oxycodone HCl (Oxycodone HCl) 5 MG TABLET ORAL EVERY 4 HOURS NEEDED as needed for PAIN Qty = 100 Tramadol HCl (Tramadol HCl) 50 MG TABLET ORAL EVERY SIX HOURS NEEDED as needed for PAIN Continue taking these medications: Budesonide/Formoterol Fumarate (Symbicort 160-4.5 Mcg Inhaler) 160 MCG-4.5 MCG/ ACTUATION HFA.AER.AD 2 Puff Inhale through mouth TWICE DAILY Comments: Last Taken:04/14/17 Time:0800 Aspirin (Ecotrin*) 81 MG TABLET.DR 1 Tablet ORAL DAILY Comments: Last Taken:04/14/17 Time:0800 Pantoprazole Sodium (Protonix) 40 MG TABLET.DR 1 Tablet ORAL DAILY Fluticasone/Salmeterol (Advair 250-50 Diskus) 250 MCG-50 MCG/DOSE BLST.W.DEV 1 Puff Inhale through mouth TWICE DAILY Qty = 60 Polyethylene Glycol 3350 (Miralax) 17 GRAM POWD.PACK 1 Packet ORAL DAILY Instructions: dissolve in water Prochlorperazine Maleate (Prochlorperazine Maleate) 10 MG TABLET 1 Tablet ORAL EVERY SIX HOURS as needed for NAUSEA/VOMITING Simvastatin (Simvastatin*) 40 MG TABLET 1 Tablet ORAL Every night Qty = 30 This prescription has been renewed Start taking the following new medications: Albuterol Sulfate (Ventolin Hfa) 90 MCG HFA.AER.AD 2 Puff Inhale through mouth EVERY SIX HOURS NEEDED as needed for asthma Qty = 1 No Refills Nicotine (Nicorelief) 2 MG GUM 2 Milligram ORAL EVERY 2 HOURS NEEDED as needed for craving a cigarette Qty = 60 No Refills Lamotrigine (Lamictal) 100 MG TABLET 100 Milligram ORAL TWICE DAILY Qty = 30 No Refills Trazodone HCl (Trazodone HCl) 50 MG TABLET 150 Milligram ORAL Every night Qty = 45 No Refills Risperidone (Risperidone) 3 MG TABLET 3 Milligram ORAL Every night Qty = 15 No Refills Benztropine Mesylate (Benztropine Mesylate) 0.5 MG TABLET 0.5 Milligram ORAL TWICE DAILY Qty = 30 No Refills Olanzapine (Zyprexa) 7.5 MG TABLET 1 Tablet ORAL Every night Qty = 15 No Refills Studies Pending at Discharge None Copies To: Selam
[2017-04-14 12:25] VITALS: BP 118/52
--- NOTE | 2017-04-14 15:28 | SOCIAL WORKER PROG NOTE PSYCH ---
Social Work Progress Note Faxed Referral(s) Referred To: [facility] Transition of Care Documents sent: Health Summary Faxed to: Brianda at [facility] Fax #: [phone] Faxed by: Kylah Veronica Date faxed: 04/14/17 Time Faxed: [phone]
== END 2017-04-14 13:16 | DRG 885 ==
LOC: ERH 11:05 → ERHI 04-08 11:02 → CP SOUTH 04-08 11:02 → ENTRNSPT 04-08 13:27 → EDTRNSPTSTS 04-08 13:39 → EDTRNSPT 04-08 13:39 → CP SOUTH 04-08 13:47 → CMPTRNSPT 04-08 13:50 → CP SOUTH 04-08 21:34
PROVIDERS: Emergency Medicine
DX: F32.3 Major depressive disorder, single episode, severe with psychotic features (principal)
CPT/HCPCS: 80307; G0463; G0480; J3490

== ENCOUNTER 2017-07-07 01:17 | Inpatient (IN) | payer OTHER ==
[~2017-07-07] VITALS: Ht 165.1 cm; Wt 75.0 kg
[~2017-07-07 01:17] MED LIST changes: +ADVAIR 250-501 EACH INH; +BENZTROPINE ME0.5 M1 PO; +LAMICTAL100 M2 PO; +MIRALAX17 G1 PO; +NICORELIEF2 MG PO; +OXYCODONE HCL5 M1 PO; +PROCHLORPERAZIN10 MG PO; +RISPERIDONE3 M1 PO; +SIMVASTATIN40 M1 PO; +TRAMADOL HCL50 M1 PO; +TRAZODONE HCL50 M1 PO; +VENTOLIN HFA18 GM INH; +ZYPREXA7.5 M1 PO
--- NOTE | 2017-07-07 12:31 | NUCLEAR MEDICINE REPORT ---
EXAMINATION: LYMPHOSCINTIGRAPHY CLINICAL INFORMATION: Breast cancer, right sentinel node. COMPARISON: Mammogram 06/01/2017. TECHNIQUE: A total of 1.2 mCi technetium 99m filtered sulfur colloid was injected in 3 divided doses around the right areola by YOJANA Lara. Images of the right breast and axilla in the anterior, right anterior oblique, and rightlateral projections were obtained with simultaneous visualization of the body silhouette using a cobalt flood source, with the patient positioned between the flood source and the gamma camera. FINDINGS: [place] sentinal node is visualized in the right axilla. Second echelon nodes are visualized in the right axilla. IMPRESSION: [place] and second echelon nodes are visualized in the right axilla.
--- NOTE | 2017-07-07 13:17 | Operative Report ---
Operative/Inv Procedure Report Surgery Date: 07/07/17 Name of Procedure: Right partial mastectomy with wire localization and sentinel lymph node biopsy Pre-Operative Diagnosis: Right breast cancer Post-Operative Diagnosis: Same Estimated Blood Loss: less than 50ml Surgeon/Child Adolescent Psychiatrist: Ghazala Manning Anesthesia: general endotracheal tube Specimens: Right lumpectomy, cranial margin, caudal margin, medial margin, lateral margin, deep margin, sentinel lymph node 2 Operative/Procedure Note Note: Patient is being treated for right lung cancer and PET scan showed a new right breast mass. Workup revealed a clinical stage I breast cancer. Preoperative lymphoscintigraphy and wire localization was performed and the films were reviewed. She is brought to the operating room placed under anesthesia. 3 mL of methylene blue diluted with 2 mL of saline was injected in the retroareolar fashion. The right breast was prepped and draped in a sterile fashion using ChloraPrep. 2 g of Ancef was given. After some Marcaine was injected and the axilla was approached first. A transverse incision was made in the lower axilla. The axilla was explored and clavipectoral fascia divided. There was a hot lymph node with counts to 30,000. An additional hot lymph node was identified with counts to 3100. No other hot, blue, or palpable lymph nodes were identified and the axilla. Hemostasis is adequate using mammary clips and cautery. Deep tissue was approximated using interrupted Vicryl sutures and the skin was closed using a running Biosyn subcuticular stitch. Rest was then approached. A curvilinear incision was made to encompass an ellipse of nipple areolar complex. Breast tissue was dissected and the skin was undermined superiorly and inferiorly to create a wide lumpectomy. Specimen was removed and marked for orientation using margin map. Intraoperative x-ray confirmed the presence of the clip in the specimen. Additional margins were taken in the cranial, caudal, medial, lateral, and deep positions. Hemostasis adequate. Deep tissue was approximated using interrupted Vicryl sutures after marking the margins with mammary clips. Subcutaneous tissues closed using a running Biosyn subcuticular stitch. Steri-Strips and sterile dressings were applied and the patient was transferred to the recovery room in satisfactory condition having tolerated the procedure well.
--- NOTE | 2017-07-07 15:40 | Admission Certification ---
Admission Certification Certification Statement - As attending physician, I certify that at the time of - admission, based on clinical presentation, severity of - symptoms, need for further diagnostic testing and - therapeutic interventions, and risk of adverse outcomes - without in-hospital treatment, in my clinical assessment, - this patient requires an acute hospital stay for a minimum - of two nights or longer. I have also considered psychsocial - factors such as support system, advanced age, financial - issues, cognitive issues, and failed out-patient treatments, - past re-admission history, safety of patient, and lack of - compliance as applicable. Specific rationale supporting this admission is: Major chest surgery with extended postoperative intensive care unit stay of 2-3 days.
--- NOTE | 2017-07-07 15:44 | Operative Report ---
Operative/Inv Procedure Report Surgery Date: 07/07/17 Name of Procedure: Right upper lobectomy with mediastinal lymph node dissection Pre-Operative Diagnosis: Right upper lobe lung cancer Post-Operative Diagnosis: Same Estimated Blood Loss: less than 50ml Surgeon/Plate Roller: Dwain Spencer MD,Yony Chapman Anesthesia: general endotracheal tube Operative/Procedure Note Note: After placement of monitoring lines and induction of general anesthesia with a double-lumen endotracheal tube was appropriate position with fiberoptic bronchoscopy. The patient then had her breast procedure by Dr. Manning which is included in a separative operative note. Once the breast wounds were dressed with sterile dressings the patient was placed in the left lateral decubitus position in her right chest was prepped and draped in a sterile fashion. A posterior lateral thoracotomy incision was made and the chest was entered through the fifth intercostal space. There was a fairly complete development of the fissures. There were no pleural contraindications to resection. Dissection was done around the hilum and there was a level 4 lymph node that was found. This was sent for intraoperative frozen section and it disclosed no evidence of tumor. Given these findings the decision was made to go ahead with resection. The fissure in the major fissure and the minor fissure were both completed with applications of the Endo PAULINO thick tissue stapler. The posterior branches to the right upper lobe of the pulmonary artery were then divided with the Endo PAULINO vascular stapler. The pulmonary vein drainage of the upper lobe was then secured with the Endo PAULINO vascular stapler. This allowed complete visualization of the pulmonary artery in the apical anterior branch to the right upper lobe was then resected with the Endo PAULINO vascular stapler. The bronchus was cleared of surrounding connective tissue. It was secured with a TA 55 reticulating stapler. Intraoperative frozen section disclose no evidence of tumor at the bronchial margin. In addition to the level 4 lymph node the lymph nodes from level 7 8 and 9 were sent for permanent histology. The bronchus was tested under water to 30 mmHg Valsalva with no evidence of air leak. The fissures were sprayed with CoSeal sealant. The chest was drained with a straight and angled 28 [place] chest tube. The ribs were reapproximated with pericostal sutures. The lung was then reinsufflated under direct vision. The wound was closed in layers with running Vicryl suture followed by running Vicryl subcuticular suture. It was dressed with dry sterile dressing. The patient tolerated the procedure well and was brought to the recovery room awake and extubated in stable condition. CC: Nigel BECKER,Ghazala; Deirdre BECKER,Garrett Reardon; Adelita BECKER,[facility]
--- NOTE | 2017-07-07 16:46 | RADIOLOGY REPORT ---
EXAMINATION: XR PORTABLE CHEST CLINICAL INFORMATION: Status post right upper lobectomy COMPARISON: PET/CT 05/19/2017 TECHNIQUE: Portable frontal view of the chest was obtained. FINDINGS: Left IJ port catheter tip lies in the region of the uppermost portion of the SVC. Right apical and basilar chest tubes are present. There is volume loss in the right hemithorax in keeping with right upper lobectomy changes. There is suggestion of a small right apical pneumothorax and right suprahilar opacity which may reflect atelectasis/postoperative hematoma. The left lung appears well aerated. No significant pleural effusion. Cardiac size appears near the upper limits of normal. No acute osseous findings are seen. IMPRESSION: Postoperative changes from right upper lobectomy. Suggestion of a small right apical pneumothorax and right suprahilar opacity which may reflect postoperative atelectasis versus hematoma.
[2017-07-07 17:30] VITALS: BP 116/48
--- NOTE | 2017-07-07 18:54 | Cons- CRCU ---
Katelin BECKER,Taya 07/07/17 1852: General Information and HPI Consulting Request Date of Consult: 07/07/17 Requested By: Source of Information: patient Exam Limitations: no limitations History of Present Illness: Patient is a 62 YO actively smoking female with PMH significant for stage IIIA NSCLC s/p chemo/radio with good response, right breast cancer, COPD, HTN, anxiety/depression, HLD underwent curative surgical removal of right breast cancer and right lung cancer. She is placed in ICU given major surgical procedrue for post operative monitoring and hence ICU team consulted. Patient follows for her pulmonary issues. Patient currently reports mild pain in the back, otherwise no shortness of breath, chest pain. She reports at her baseline good functional status. Reportedly had significant cough every day morning with around a cup of phelgm production. She smokes around 1/2 pack daily till yesterday. Allergies/Medications Allergies: Coded Allergies: codeine (Intermediate, ITCHING, HIVES 07/07/17) morphine (itch 07/03/17) buspirone (From BUSPAR) (CANT SPEAK, STUTTERS 07/07/17) lurasidone (From LATUDA) (SEIZURE 07/03/17) Home Med List: Albuterol Sulfate (Ventolin Hfa) 90 MCG HFA.AER.AD 2 PUF INH Q6P PRN asthma Aspirin (Ecotrin*) 81 MG TABLET.DR 1 TAB PO DAILY HEART HEALTH (Reported) Benztropine Mesylate 0.5 MG TABLET 0.5 MG PO BID side effects from Risperidone Fluticasone/Salmeterol (Advair 250-50 Diskus) 250 MCG-50 MCG/DOSE BLST.W.DEV 1 PUF INH BID BREATHING PROBLEMS (Reported) Lamotrigine (Lamictal) 100 MG TABLET 100 MG PO BID Depression Olanzapine (Zyprexa) 7.5 MG TABLET 1 TAB PO QPM hallucinations Polyethylene Glycol 3350 (Miralax) 17 GRAM POWD.PACK 1 PAC PO DAILY CONSTIPATION (Reported) dissolve in water Risperidone 3 MG TABLET 3 MG PO QPM hallucinations Simvastatin (Simvastatin*) 40 MG TABLET 1 TAB PO QPM CHOLESTEROL Trazodone HCl 50 MG TABLET 150 MG PO QPM insomnia Current Medications: Current Medications Sig/Ronnie Start time Last Medication Dose Route Stop Time Status Admin Acetaminophen 1,000 MG Q6H 05/29 1745 AC 07/07 PO 1859 Acetaminophen 1,000 MG .STK-MED ONE 07/07 1041 DC IV 07/07 1042 Albuterol Sulfate 3 ML Q4 07/07 2200 AC 07/07 INH 2008 Albuterol Sulfate 2 PUF Q6P PRN 07/07 1745 AC INH Albuterol Sulfate 2 PUF Q6P PRN 07/07 1600 DC INH Aspirin 81 MG DAILY 07/08 0900 AC PO Atorvastatin Calcium 20 MG 1700 07/08 1700 AC PO Atorvastatin Calcium 20 MG 1700 07/07 1700 DC PO Benztropine Mesylate 0.5 MG BID 07/07 2100 DC PO Benztropine Mesylate 0.5 MG BID 07/07 2100 AC 07/07 PO 2134 Budesonide/ 2 PUF BID 07/07 2100 DC Formoterol Fumarate INH Budesonide/ 2 PUF BID 07/07 2100 AC 07/07 Formoterol Fumarate INH 2136 Cefazolin Sodium 2 GM Q8H 07/07 2200 AC 07/07 N/A 1 UNIT IV 07/08 06 2129 Cefazolin Sodium 2 GM IQ8 07/07 1600 DC N/A 1 UNIT IV 07/08 0029 Cefazolin Sodium 2,000 MG ONCE 07/07 0000 DC IV 07/07 2359 Celecoxib 100 MG BID 07/07 2100 AC 07/07 PO 2134 Dextrose/Sodium 1,000 ML .[id number] 07/07 1745 AC 07/07 Chloride IV 1752 Fentanyl Citrate 250 MCG .STK-MED ONE 07/07 1039 DC IM 07/07 1040 Gabapentin 300 MG TID 07/07 2099 AC 07/07 PO 2136 Heparin Sodium 5,000 UNIT Q8 07/07 220 AC 07/07 (Porcine) SC 2135 Hydromorphone HCl 1 MG Q2-3 HRS NEEDED.. 07/07 2014 AC 07/07 IV 2039 Hydromorphone HCl 2 MG .STK-MED ONE 07/07 1040 DC IM 07/07 1041 Lamotrigine 100 MG BID 07/07 2100 DC PO Lamotrigine 100 MG BID 07/07 2100 AC 07/07 PO 2135 Lidocaine 20 ML .STK-MED ONE 07/07 0902 DC ID 07/07 0903 Midazolam HCl 2 MG .STK-MED ONE 07/07 1039 DC IM 07/07 1040 Nicotine 7 MG DAILY 07/08 0900 AC TOP Olanzapine 7.5 MG QPM 07/07 2100 DC PO Olanzapine 7.5 MG QPM 07/07 2100 AC 07/07 PO 2137 Oxycodone HCl 5 MG Q4 HRS NEEDED PRN 07/07 1745 AC PO Oxycodone HCl 10 MG Q4H PRN 07/07 1745 AC 07/07 PO 2231 Polyethylene Glycol 17 GM DAILY 07/08 0900 DC PO Polyethylene Glycol 17 GM DAILY 07/08 0900 AC PO Risperidone 3 MG QPM 07/07 2100 DC PO Risperidone 3 MG QPM 07/07 2100 AC 07/07 PO 2136 Sodium Bicarbonate 50 MEQ .STK-MED ONE 07/07 0902 DC OTHER 07/07 0903 Trazodone HCl 150 MG QPM 07/07 2100 DC PO Trazodone HCl 150 MG QPM 07/07 2100 AC 07/07 PO 2134 Review of Systems Review of Systems Constitutional: Reports: see HPI. EENTM: Reports: see HPI. Cardiovascular: Reports: see HPI. Respiratory: Reports: see HPI. GI: Reports: see HPI. Genitourinary: Reports: see HPI. Past History Travel History Traveled to [place] past 21 day No Medical History Neurological: NONE EENT: NONE Cardiovascular: CAD, hypertension Respiratory: COPD, emphysema Gastrointestinal: NONE Hepatic: NONE Renal: NONE Musculoskeletal: NONE Psychiatric: anxiety, depression Endocrine: NONE Blood Disorders: NONE Cancer(s): R LUNG CA CLEANERS/Reproductive: NONE Surgical History Surgical History: non-contributory (115) Family History Relations & Conditions If Any: MOTHER Relation not specified for: FH: cancer Psychosocial History Smoking Status: Current Everyday Smoker Functional Ability ADLs Independent: dressing, eating, toileting, bathing. Ambulation: independent IADLs Independent: shopping, housework, finances, food prep, telephone, transportation , medication admin. Exam & Diagnostic Data Last 24 Hrs of Vital Signs/I&O Vital Signs Date Time Temp Pulse Resp B/P B/P Pulse O2 O2 Flow FiO2 Mean Ox Delivery Rate 07/08 1999 96 Nasal 2.0L Cannula 07/07 1945 Nasal 2.0L Cannula 07/07 1729 97.4 78 20 116/48 99 Nasal 2.0L Cannula 07/07 1729 99 Nasal 2.0L Cannula Physical Exam General Appearance: well developed/nourished, no apparent distress, alert, awake , comfortable Head: atraumatic, normal appearance Eyes: Bilateral: normal appearance, PERRL, EOMI. Ears, Nose, Throat: normal pharynx Neck: supple Respiratory: subcutaneous emphysema on her right chest region 2 chest tube anteriorly and posteriorly - drianing dark blood Cardiovascular: regular rate/rhythm, normal peripheral pulses Gastrointestinal: normal bowel sounds, soft, non-tender Back: normal inspection, normal range of motion Extremities: normal inspection, normal capillary refill, normal range of motion Neurologic/Psych: no motor/sensory deficits, awake, alert, oriented x 3, normal mood/affect Cranial Nerves: normal hearing, normal speech, PERRL Skin: intact, normal color, warm/dry Body Front and Back (Adult) 1) chest tube placement 2) chest tube placement Last 48 Hrs of Labs/Vishal: Vital Signs Date Time Temp Pulse Resp B/P B/P Pulse O2 O2 Flow FiO2 Mean Ox Delivery Rate 07/08 1999 96 Nasal 2.0L Cannula 07/07 1945 Nasal 2.0L Cannula 07/07 1729 97.4 78 20 116/48 99 Nasal 2.0L Cannula 07/07 1729 99 Nasal 2.0L Cannula Diagnostic Data CXR Results IMPRESSION: Postoperative changes from right upper lobectomy. Suggestion of a small right apical pneumothorax and right suprahilar opacity which may reflect postoperative atelectasis versus hematoma. Assessment/Plan CRCU Impression/Plan: Patient is a 62 YO F with Rigth sided NSCLC s/p chemo/radio, right sided breast cancer underwent major curative surgey for both carcinomas and subsequently placed in ICU for closer monitoring. She had 2 chest tubes anteriiorly and posteriorly with bloody discharge. She admits active smoking till yesterday around 1/2pack a day. Appears to be in good functional status at baseline. Problem list 1. s/p Right upper lobectomy with LN dissection and chest tube in place in the setting of stage IIIa NSCLC 2. s/p right partial mastectomy with LN biopsy 3. Subcutaneous emphysema postoperatively 4. Anxiety/depression actively on medications 5. Active smoking Plan Continue monitoring in ICU Closer monitoring in the setting of major thoracic surgery Incentive spirometry to prevent further pulm complications On clear liquid diet - tolerating well Monitor CBC/CMP daily, CXR in am Nicotine patch given dependence Continue psychiatry medicaitons including Lamotrigine, olanzepine, Risperidone Pain management with celecoxib, oxycodone Aggressive bowel regimen while on pain medications Continue home medications including, ASA, Atrovastatin TRC/Nebs DVT prophylaxis SC heparin Code status Full code Recommendations: as above Consult Acknowledgment - Thank you for your consult request. Alexis BECKER,Juan 07/07/17 2018: Assessment/Plan CRCU Impression/Plan: Seen and examined independently PT with stage IIIa NSCLCA s/p chemoxrt with complete response by pet now here for curative surg with rt upper lobectomy and lymphnode dissection Pt also noted to have Rt sided breast ca now with partial mastectomy and sentinal lymphnode bx Now has mild pain post op pain Has some sub cut emphysema on the rt side with two chest tubes with some airleak in the first tube Has had normal PFT lately with reduced dlco Has been using advair and prn albuterol at home Smoked till yesterday, no etoh Home Med List: Albuterol Sulfate (Ventolin Hfa) 90 MCG HFA.AER.AD 2 PUF INH Q6P PRN asthma Aspirin (Ecotrin*) 81 MG TABLET.DR 1 TAB PO DAILY HEART HEALTH (Reported) Benztropine Mesylate 0.5 MG TABLET 0.5 MG PO BID side effects from Risperidone Fluticasone/Salmeterol (Advair 250-50 Diskus) 250 MCG-50 MCG/DOSE BLST.W.DEV 1 PUF INH BID BREATHING PROBLEMS (Reported) Lamotrigine (Lamictal) 100 MG TABLET 100 MG PO BID Depression Olanzapine (Zyprexa) 7.5 MG TABLET 1 TAB PO QPM hallucinations Polyethylene Glycol 3350 (Miralax) 17 GRAM POWD.PACK 1 PAC PO DAILY CONSTIPATION (Reported) dissolve in water Risperidone 3 MG TABLET 3 MG PO QPM hallucinations Simvastatin (Simvastatin*) 40 MG TABLET 1 TAB PO QPM CHOLESTEROL Trazodone HCl 50 MG TABLET 150 MG PO QPM insomnia Well-developed well-nourished no apparent distress. HEENT: Atraumatic, extraocular motion intact Neck: Supple, no lymphadenopathy Trachea midline Heart: Regular rate and rhythm no murmur Respiratory: No respiratory distress, chest tubes [address], positive air leak chest tube #1/anterior chest tube. Both tubes with dark bloody drainage, has sig sub cut air, with velcro crackles due to that Left lung sounds clear, right lung sounds, significant congestion and decreased breath sounds noted right mid chest and apical. Mild crackles noted right lower lobe. Scant amount of bloody drainage noted at thoracotomy site posterior chest wall. Right-sided breast and axillary, dressings clean dry and intact, minimal swelling Extremities: No edema, no calf pain Neuro: Alert and oriented x3 Psych: Mood affect normal, normal memory normal judgment. Skin: Warm and dry, no rash on exposed skin IMPRESSION PT with sig smoking and other med issues as noted by houseofficer with * Stage IIIa NSCLCA s/p chemo xrt with complete response now s/p curative surg with right upper lobectomy with mediastinal lymph node dissection * Right side partial mastectomy and lymph node biopsy * Mild airleak normal for post op * Sub cut emphysema due to immediate post op * Smoking uptill yesterday with no sig copd by PFT but has sig chronic bronchitis with good performance status * Schizoaffective dz vs schizophrenia, stable recent exacerbation requiring psych admission in 03/29 * Hyperlipedemia * Insomnia and chronic pain stable REC Cont post op care Incentive spirometry Watch for worsening sub cut emphsema for now Nebs prn Use oxygen only if sat is less than 92 Cont psych meds Nicotine patch 7 mg COnt out pt meds po including asa in am Will follow closely Cxr in am Consult Acknowledgment - Thank you for your consult request.
--- NOTE | 2017-07-07 20:21 | PN- Thoracic Surgery ---
Subjective Subjective: Pain is better controlled now, most of the pain is in the right side mid back, upper back region. No shortness of breath. No fever or flulike illness. She is in good spirits Right sided axillary and breast pain is mild Objective Vital Signs and I&Os Vital Signs Date Time Temp Pulse Resp B/P B/P Pulse O2 O2 Flow FiO2 Mean Ox Delivery Rate 07/07 1945 Nasal 2.0L Cannula 07/07 1729 97.4 78 20 116/48 99 Nasal 2.0L Cannula 07/07 1729 99 Nasal 2.0L Cannula Physical Exam: Well-developed well-nourished no apparent distress. HEENT: Atraumatic, extraocular motion intact Neck: Supple, no lymphadenopathy Trachea midline Heart: Regular rate and rhythm no murmur Respiratory: No respiratory distress, chest tubes [address], positive air leak chest tube #1/anterior chest tube. Both tubes with dark bloody drainage Left lung sounds clear, right lung sounds, significant congestion and decreased breath sounds noted right mid chest and apical. Mild crackles noted right lower lobe. Scant amount of bloody drainage noted at thoracotomy site posterior chest wall. Right-sided breast and axillary, dressings clean dry and intact, minimal swelling Extremities: No edema, no calf pain Neuro: Alert and oriented x3 Psych: Mood affect normal, normal memory normal judgment. Skin: Warm and dry, no rash on exposed skin Results Recent Imaging Studies: PATIENT: VANI DONOVAN PRESENT AGE: 62 PATIENT ACCOUNT NO: [id number] : 55 LOCATION: [facility] ORDERING PHYSICIAN: Yony Prakash Jr., MD SERVICE DATE: 07/07/17 EXAM TYPE: RAD - XRY-PORTABLE CHEST XRAY EXAMINATION: XR PORTABLE CHEST CLINICAL INFORMATION: Status post right upper lobectomy COMPARISON: PET/CT 05/19/2017 TECHNIQUE: Portable frontal view of the chest was obtained. FINDINGS: Left IJ port catheter tip lies in the region of the uppermost portion of the SVC. Right apical and basilar chest tubes are present. There is volume loss in the right hemithorax in keeping with right upper lobectomy changes. There is suggestion of a small right apical pneumothorax and right suprahilar opacity which may reflect atelectasis/postoperative hematoma. The left lung appears well aerated. No significant pleural effusion. Cardiac size appears near the upper limits of normal. No acute osseous findings are seen. IMPRESSION: Postoperative changes from right upper lobectomy. Suggestion of a small right apical pneumothorax and right suprahilar opacity which may reflect postoperative atelectasis versus hematoma. DICTATED BY: Mario Braden MD DATE/TIME DICTATED:07/07/171637 SAP ABAP DEVELOPER:MIGUE DATE/TIME TRANSCRIBED:07/07/171637 CONFIDENTIAL, DO NOT COPY WITHOUT APPROPRIATE AUTHORIZATION. <Electronically signed in Other Vendor System> SIGNED BY: Mario Braden MD 07/07/171645 Assessment/Plan Assessment/Plan Postop day #0 status post #1) right upper lobectomy with mediastinal lymph node dissection secondary to Right upper lobe lung cancer. Right apical pneumothorax and positive air leak of anterior chest tube. Stable. #2) Right side partial mastectomy and sentinel lymph node biopsy secondary to breast cancer ICU monitoring. Perioperative antibiotics. Pain medication as needed. Add Dilaudid IV for breakthrough pain. Neurontin p.o. for pain Bedrest IV fluids Clear liquid diet, aat Follow a.m. labs Continue chest tubes 2. Positive air leak, continue chest tubes 2 to wall suction, Follow-up chest x-ray in a.m. heparin subcu and ALPS for DVT prophylaxis Regular home meds Respiratory treatments per protocol Core Measures Venous Thromboembolism VTE Risk Factors Surgery No Mechanical VTE Prophylaxis d/t N/A MechProphylax Ordered No VTE Pharm Prophylaxis d/t NA PharmProphylax ordered
[2017-07-08] VITALS: BP 96/60
[2017-07-08 03:51] LABS: ABSOLUTE BASOPHIL COUNT 0 /CUMM (0.0-0.2); ABSOLUTE EOSINOPHIL COUNT 0 /CUMM (0.0-0.7); ABSOLUTE LYMPH COUNT 0.7 /CUMM (1.2-3.4); ABSOLUTE MONOCYTE COUNT 0.7 /CUMM (0.10-0.60); BASOPHIL % 0 % (0.0-2.0); EOSINOPHIL % 0 % (0-5); GRANULOCYTE % 86.3 % (42.2-75.2); HEMATOCRIT 32.4 % (37-47); MEAN CORPUSCULAR HGB 32.1 PG (27.0-31.0); MEAN CORPUSCULAR HGB CONC 32.6 G/DL (33.0-37.0); MEAN CORPUSCULAR VOLUME 98.3 FL (81.0-99.0); MEAN PLATELET VOLUME 6.9 FL (7.4-10.4); PLATELET COUNT 246 /CUMM (130-400); RBC DISTRIBUTION WIDTH 15.3 % (11.5-14.5); RED BLOOD CELL CT 3.29 /CUMM (4.20-5.40); WHITE BLOOD CELL COUNT 10.5 /CUMM (4.8-10.8)
--- NOTE | 2017-07-08 05:51 | PN- Thoracic Surgery ---
See Addendum Subjective Subjective: Pain is better controlled after receiving IV dilauded however pt feels dose may be too much and hypotension also noted. no other complaints, no fever, no cp, no sob. Objective Vital Signs and I&Os Vital Signs Date Time Temp Pulse Resp B/P B/P Pulse O2 O2 Flow FiO2 Mean Ox Delivery Rate 07/08 0400 96 Nasal 2.0L Cannula 07/08 0036 97 Nasal 2.0L Cannula 07/08 0000 95 Nasal 2.0L Cannula 07/08 0000 97.7 77 9 96/60 97 Nasal 2.0L Cannula 07/08 1999 96 Nasal 2.0L Cannula 07/07 194 Nasal 2.0L Cannula 07/07 1729 97.4 78 20 116/48 99 Nasal 2.0L Cannula 07/07 173 99 Nasal 2.0L Cannula Intake & Output 07/08 0800 07/08 0000 07/07 1600 07/07 0800 07/07 0000 07/06 1600 Intake Total 569 Output Total 310 Balance 259 Intake, IV 329 Intake, Oral 240 Output, Chest 110 Tube Drainage Output, Urine 200 Patient 165 lb Weight Weight Bed scale Measurement Method Physical Exam: Well-developed well-nourished no apparent distress. HEENT: Atraumatic, extraocular motion intact Neck: Supple, no lymphadenopathy Trachea midline Heart: Regular rate and rhythm no murmur Respiratory: No respiratory distress, chest tubes [address], positive air leak chest tube #1/anterior chest tube. 80cc thin bloody discharge. Chest tube #2/ posterior with 140 cc thin bloody discharge Left lung sounds clear, right lung sounds with significant congestion and decreased breath sounds noted right mid chest and apical. Mild crackles noted right lower lobe. Scant amount of bloody drainage noted at thoracotomy site posterior chest wall. Right-sided breast and axillary, dressings clean dry and intact, minimal swelling Extremities: No edema, no calf pain Neuro: Alert and oriented x3 Psych: Mood affect normal, normal memory normal judgment. Skin: Warm and dry, no rash on exposed skin Results Last 48 Hours of Labs: Laboratory Tests 07/08 0323 Chemistry Sodium (137 - 145 mmol/L) 138 Potassium (3.5 - 5.1 mmol/L) 4.7 Chloride (98 - 107 mmol/L) 104 Carbon Dioxide (22 - 30 mmol/L) 23 Anion Gap (5 - 16) 10 BUN (7 - 17 mg/dL) 11 Creatinine (0.5 - 1.0 mg/dL) 0.7 Estimated GFR (>60 ml/min) > 60 BUN/Creatinine Ratio (7 - 25 %) 15.7 Hematology CBC w Diff NO MAN DIFF REQ WBC (4.8 - 10.8 /CUMM) 10.5 RBC (4.20 - 5.40 /CUMM) 3.29 L Hgb (12.0 - 16.0 G/DL) 10.6 L Hct (37 - 47 %) 32.4 L MCV (81.0 - 99.0 FL) 98.3 MCH (27.0 - 31.0 PG) 32.1 H MCHC (33.0 - 37.0 G/DL) 32.6 L RDW (11.5 - 14.5 %) 15.3 H Plt Count (130 - 400 /CUMM) 246 MPV (7.4 - 10.4 FL) 6.9 L Gran % (42.2 - 75.2 %) 86.3 H Lymphocytes % (20.5 - 51.1 %) 6.9 L Monocytes % (1.7 - 9.3 %) 6.8 Eosinophils % (0 - 5 %) 0 Basophils % (0.0 - 2.0 %) 0 Absolute Granulocytes (1.4 - 6.5 /CUMM) 9.0 H Absolute Lymphocytes (1.2 - 3.4 /CUMM) 0.7 L Absolute Monocytes (0.10 - 0.60 /CUMM) 0.7 H Absolute Eosinophils (0.0 - 0.7 /CUMM) 0 Absolute Basophils (0.0 - 0.2 /CUMM) 0 Assessment/Plan Assessment/Plan Postop day #1 status post #1) right upper lobectomy with mediastinal lymph node dissection secondary to Right upper lobe lung cancer. Right apical pneumothorax and positive air leak of anterior chest tube. Stable. #2) Right side partial mastectomy and sentinel lymph node biopsy secondary to breast cancer ICU monitoring. Perioperative antibiotics. Pain medication as needed. change Dilaudid IV to 0.4mg q4 for breakthrough pain. Neurontin p.o. for pain Bedrest IV fluids until tolerating adequate po advance to full liquid diet labs stable Positive air leak, continue chest tubes 2 to wall suction, Follow-up chest x-ray this a.m. heparin subcu and ALPS for DVT prophylaxis Regular home meds Respiratory treatments per protocol Core Measures Venous Thromboembolism VTE Risk Factors Surgery No Mechanical VTE Prophylaxis d/t N/A MechProphylax Ordered No VTE Pharm Prophylaxis d/t NA PharmProphylax ordered
--- NOTE | 2017-07-08 07:52 | RADIOLOGY REPORT ---
EXAMINATION: XR PORTABLE CHEST CLINICAL INFORMATION: Status post right upper lobectomy, 2 right-sided chest tubes, apical pneumothorax COMPARISON: 07/07/2017 TECHNIQUE: Portable frontal view of the chest was obtained. FINDINGS: Right apical and basilar chest tubes appear in unchanged position. Left IJ port catheter appears in stable position. There is redemonstrated volume loss in right hemithorax in keeping with recent right upper lobectomy. There is a possible trace residual right apical pneumothorax. Right upper lung aeration appears mildly improved from prior, with adjacent suture line noted. No new findings identified in the left lung, with suggestion of subsegmental left basilar atelectasis. No significant pleural effusion. The cardiomediastinal silhouette is stable. No acute osseous findings are seen. IMPRESSION: Postoperative changes from right upper lobectomy. Possible trace residual right apical pneumothorax.
--- NOTE | 2017-07-08 07:58 | PN- Resident CRCU ---
Subjective HPI/CRCU Issues: S/p lobectomy and partial mastectomy. Continues to have pain but tolerable. Objective Vital Signs & I&O Last 8 Hrs of Vitals and I&O: Laboratory Tests 07/08/17 0323: Anion Gap 10, Estimated GFR > 60, BUN/Creatinine Ratio 15.7, CBC w Diff NO MAN DIFF REQ, RBC 3.29 L, MCV 98.3, MCH 32.1 H, MCHC 32.6 L, RDW 15.3 H, MPV 6.9 L, Gran % 86.3 H, Lymphocytes % 6.9 L, Monocytes % 6.8, Eosinophils % 0, Basophils % 0, Absolute Granulocytes 9.0 H, Absolute Lymphocytes 0.7 L, Absolute Monocytes 0.7 H, Absolute Eosinophils 0, Absolute Basophils 0 Vital Signs Date Time Temp Pulse Resp B/P B/P Pulse O2 O2 Flow FiO2 Mean Ox Delivery Rate 07/08 1600 98 Nasal 2.0L Cannula 07/08 1200 95 Nasal 2.0L Cannula Intake & Output 07/08 1600 Intake Total 1100 Output Total 424 Balance 676 Intake, IV 300 Intake, Oral 800 Output, Chest 124 Tube Drainage Output, Urine 300 Intake & Output 07/08 1600 Intake Total 1100 Output Total 424 Balance 676 Intake, IV 300 Intake, Oral 800 Output, Chest 124 Tube Drainage Output, Urine 300 Exam General Appearance: no apparent distress, alert, awake, her anterior chest but mostly the posterior chest where the chest tube was pulled out Respiratory: inspiratory rhonchi, left lower base crackles Cardiovascular: regular rate/rhythm Gastrointestinal: soft, non-tender, decreased bowel sounds Extremities: 2+ radial pulses, 1+ lower extremity edema Current Medications: Current Medications Sig/Ronnie Start time Last Medication Dose Route Stop Time Status Admin Acetaminophen 1,000 MG Q6H 07/07 1745 AC 07/08 PO 1639 Albuterol Sulfate 3 ML Q4 07/07 2200 AC 07/08 INH 1600 Albuterol Sulfate 2 PUF Q6P PRN 07/07 174 AC INH Albuterol Sulfate 2 PUF Q6P PRN 07/07 1600 DC INH Aspirin 81 MG DAILY 07/08 0900 AC 07/08 PO 0756 Atorvastatin Calcium 20 MG 1700 07/08 1700 AC 07/08 PO 1620 Atorvastatin Calcium 20 MG 1700 07/07 1700 DC PO Benztropine Mesylate 0.5 MG BID 07/07 2099 DC PO Benztropine Mesylate 0.5 MG BID 07/07 2099 AC 07/08 PO 0756 Budesonide/ 2 PUF BID 07/07 2099 DC Formoterol Fumarate INH Budesonide/ 2 PUF BID 07/07 2099 AC 07/08 Formoterol Fumarate INH 0807 Cefazolin Sodium 2 GM Q8H 07/07 2199 DC 07/08 N/A 1 UNIT IV 07/08 0629 0608 Cefazolin Sodium 2 GM IQ8 07/07 1600 DC N/A 1 UNIT IV 07/08 0029 Cefazolin Sodium 2,000 MG ONCE 07/07 0000 DC IV 07/07 2359 Celecoxib 100 MG BID 07/07 2099 AC 07/08 PO 0802 Dextrose/Sodium 1,000 ML .[id number] 07/07 1744 DC 07/08 Chloride IV 0223 Gabapentin 300 MG TID 07/07 2099 AC 07/08 PO 1303 Heparin Sodium 5,000 UNIT Q8 07/07 2199 AC 07/08 (Porcine) SC 1303 Hydromorphone HCl 0.4 MG Q4 HRS NEEDED PRN 07/08 0545 AC IV Hydromorphone HCl 1 MG Q2-3 HRS NEEDED.. 07/07 2014 DC 07/08 IV 0241 Lamotrigine 100 MG BID 07/07 2099 DC PO Lamotrigine 100 MG BID 07/07 2099 AC 07/08 PO 0802 Nicotine 7 MG DAILY 07/08 09 AC TOP Olanzapine 7.5 MG QPM 07/07 2099 DC PO Olanzapine 7.5 MG QPM 07/07 2099 AC 07/07 PO 2137 Oxycodone HCl 5 MG Q4 HRS NEEDED PRN 07/07 174 AC PO Oxycodone HCl 10 MG Q4H PRN 07/07 174 AC 07/08 PO 1304 Polyethylene Glycol 17 GM DAILY 07/08 0900 DC PO Polyethylene Glycol 17 GM DAILY 07/08 09 AC 07/08 PO 0805 Risperidone 3 MG QPM 07/07 2099 DC PO Risperidone 3 MG QPM 07/07 2100 AC 07/07 PO 213 Trazodone HCl 150 MG QPM 07/07 2099 DC PO Trazodone HCl 150 MG QPM 07/07 2099 AC 07/07 PO 213 Impression/Plan Impression/Problem List Impression: 62 YO F with pmhx of tobacco use, right sided NSCLC s/p chemo/radio and right sided breast cancer s/p lobectomy with lymph node dissection and partial mastectomy with lymph node biopsy. Problem list 1. s/p Right upper lobectomy with LN dissection and chest tube in place in the setting of stage IIIa NSCLC 2. s/p right partial mastectomy with LN biopsy 3. Subcutaneous emphysema postoperatively 4. Anxiety/depression, 5. COPD, Active smoker 6. Post op R apical ptx Plan -CXR: possible trace residual right apical pneumothorax. -Closer monitoring in the setting of major thoracic surgery -cont incentive spirometry, pulmonary toileting -Continue chest tubes x1 (anterior) per surgery. posterior tubed pulled, aggressive pulmonary toilet, trc/nebs -Nicotine patch given dependence -Continue psychiatry medicaitons including lamotrigine, olanzepine, Risperidone, benztropine -Pain management with celecoxib, oxycodone -Aggressive bowel regimen while on pain medications: miralax -Continue home medications including, ASA, Atrovastatin, trazodone, gabapentin, symbicort, albuterol -On regular diet, advanced diet per surgery -DVT prophylaxis: SC heparin -Code status: Full code Problem List: 1. S/P lobectomy of lung 2. S/P partial mastectomy Pain Ratin Tomorrow's Labs & Rationales: icu cbc Plan DVT/Prophylaxis: sc heparin
[2017-07-08 08:00] VITALS: BP 90/60
--- NOTE | 2017-07-08 08:22 | PN- Pulmonary ---
Subjective HPI/Critical Care Issues: Patient denies shortness of breath though continues to have chest painoxygen saturations 2 L are normal Objective Current Medications: Current Medications Sig/Ronnie Start time Last Medication Dose Route Stop Time Status Admin Acetaminophen 1,000 MG Q6H 07/07 1745 AC 07/08 PO 0607 Acetaminophen 1,000 MG .STK-MED ONE 07/07 1041 DC IV 07/07 1042 Albuterol Sulfate 3 ML Q4 07/07 2200 AC 07/08 INH 0429 Albuterol Sulfate 2 PUF Q6P PRN 07/07 1745 AC INH Albuterol Sulfate 2 PUF Q6P PRN 07/07 1600 DC INH Aspirin 81 MG DAILY 07/08 0900 AC 07/08 PO 0756 Atorvastatin Calcium 20 MG 1700 07/08 1700 AC PO Atorvastatin Calcium 20 MG 1700 07/07 1700 DC PO Benztropine Mesylate 0.5 MG BID 07/07 2100 DC PO Benztropine Mesylate 0.5 MG BID 07/07 2100 AC 07/08 PO 0756 Budesonide/ 2 PUF BID 07/07 2100 DC Formoterol Fumarate INH Budesonide/ 2 PUF BID 07/07 2100 AC 07/08 Formoterol Fumarate INH 0807 Cefazolin Sodium 2 GM Q8H 07/07 2200 DC 07/08 N/A 1 UNIT IV 07/08 0629 0608 Cefazolin Sodium 2 GM IQ8 07/07 1600 DC N/A 1 UNIT IV 07/08 0029 Cefazolin Sodium 2,000 MG ONCE 07/07 0000 DC IV 07/07 2359 Celecoxib 100 MG BID 07/07 2100 AC 07/08 PO 0802 Dextrose/Sodium 1,000 ML .[id number] 07/07 1745 AC 07/08 Chloride IV 0223 Fentanyl Citrate 250 MCG .STK-MED ONE 07/07 1039 DC IM 07/07 1040 Gabapentin 300 MG TID 07/07 2100 AC 07/08 PO 0805 Heparin Sodium 5,000 UNIT Q8 07/07 220 AC 07/08 (Porcine) SC 0609 Hydromorphone HCl 0.4 MG Q4 HRS NEEDED PRN 07/08 0545 AC IV Hydromorphone HCl 1 MG Q2-3 HRS NEEDED.. 07/07 2014 DC 07/08 IV 0241 Hydromorphone HCl 2 MG .STK-MED ONE 07/07 1040 DC IM 07/07 1041 Lamotrigine 100 MG BID 07/07 2099 DC PO Lamotrigine 100 MG BID 07/07 2100 AC 07/08 PO 0802 Lidocaine 20 ML .STK-MED ONE 07/07 0902 DC ID 07/07 0903 Midazolam HCl 2 MG .STK-MED ONE 07/07 1039 DC IM 07/07 1040 Nicotine 7 MG DAILY 07/08 0900 AC TOP Olanzapine 7.5 MG QPM 07/07 2100 DC PO Olanzapine 7.5 MG QPM 07/07 2100 AC 07/07 PO 2137 Oxycodone HCl 5 MG Q4 HRS NEEDED PRN 07/07 174 AC PO Oxycodone HCl 10 MG Q4H PRN 07/07 174 AC 07/08 PO 0813 Polyethylene Glycol 17 GM DAILY 07/08 0900 DC PO Polyethylene Glycol 17 GM DAILY 07/08 0900 AC 07/08 PO 0805 Risperidone 3 MG QPM 07/07 2099 DC PO Risperidone 3 MG QPM 07/07 2099 AC 07/07 PO 213 Sodium Bicarbonate 50 MEQ .STK-MED ONE 07/07 09 DC OTHER 07/07 09 Trazodone HCl 150 MG QPM 07/07 2099 DC PO Trazodone HCl 150 MG QPM 07/07 2100 AC 07/07 PO 2134 Vital Signs & I&O Last 24 Hrs of Vitals and I&O: Vital Signs Date Time Temp Pulse Resp B/P B/P Pulse O2 O2 Flow FiO2 Mean Ox Delivery Rate 07/08 0400 96 Nasal 2.0L Cannula 07/08 0036 97 Nasal 2.0L Cannula 07/08 0000 95 Nasal 2.0L Cannula 07/08 0000 97.7 77 9 96/60 97 Nasal 2.0L Cannula 07/08 1999 96 Nasal 2.0L Cannula 07/07 194 Nasal 2.0L Cannula 07/07 1729 97.4 78 20 116/48 99 Nasal 2.0L Cannula 07/07 173 99 Nasal 2.0L Cannula Intake & Output 07/08 1600 07/08 0800 07/08 0000 Intake Total 735 569 Output Total 305 310 Balance 430 259 Intake, IV 615 329 Intake, Oral 120 240 Output, Chest 105 110 Tube Drainage Output, Urine 200 200 Patient 165 lb Weight Weight Bed scale Measurement Method Saturation 2 L 96% exam for chest shows diminished breath sounds over the right posterior chest Impression/Plan Impression/Plan Impression/Plan: [age]-year-old with COPD actively smoking status post thoracotomy for lung cancer there is evidence of minor air leak Recommendations: Taper FiO2 his saturations allow continue aggressive pulmonary toilet and incentive spirometry. Smoking cessation counseling provided. Removal of chest tubes per CT surgery. Mobilize out of bed
--- NOTE | 2017-07-08 08:52 | MAMMOGRAPHY REPORT ---
PROCEDURE: US GUIDANCE FOR BREAST PREOPERATIVE NEEDLE LOCALIZATION, RIGHT MM POST NEEDLE LOCALIZATION SINGLE CC VIEW, RIGHT BREAST SPECIMEN RADIOGRAPHY CLINICAL INFORMATION: Biopsy proved right-sided lateral subareolar breast carcinoma. Preoperative needle localization is requested. COMPARISON: Prior studies done on 05/28/2017 and 06/01/2017. TECHNIQUE AND FINDINGS: The details of the procedure, as well as the risks, benefits, and alternatives to the procedure were explained to the patient in detail and all of her questions were answered, after which, written informed consent was obtained. Prior to the procedure, sonography revealed 1.8 cm maximum dimension mass in the lateral subareolar part of the right breast. A timeout was performed, the lesion intended for needle localization was targeted and the skin of the right breast was then prepped and draped in the usual sterile fashion. Using sonographic guidance, sterile technique and buffered 2% lidocaine without epinephrine (10 mL) for local anesthesia, a 5 cm Kopan's needle was placed within the biopsy proved malignancy at lateral subareolar region of the right breast. The patient tolerated the procedure well. The single view mammogram further confirmed accurate placement of the wire within the intended mass. There are scattered fibroglandular densities (ACR BI-RADS breast density composition category B). No adjustment was necessary. Previously placed tissue marker was also identified adjacent to the wire. The worksheet was appropriately labeled and was sent to the OR with the patient. Subsequently, following excision of the mass, the specimen radiography was performed which revealed target within the specimen with intact wire and the previously placed tissue marker within the mass. IMPRESSION: 1. Successful sonographic guided wire localization of the right breast biopsy proved lateral subareolar invasive ductal carcinoma. 2. Mammographic confirmation of accurate needle localization along with appropriate marking for presurgical roadmap with worksheet. 3. Final specimen radiograph confirming complete, adequate excision of the mass and removal of the previously placed tissue marker and the intact wire. Results were called to Dr. Manning in the operating room at the time of imaging. The histology report is pending.
--- NOTE | 2017-07-08 11:10 | PN- General Surgery ---
Subjective Subjective: No complaints regarding the breast and axillary incisions. Some chest pain. Looks cofortable in chair. Objective Vital Signs and I&Os Vital Signs Date Time Temp Pulse Resp B/P B/P Pulse O2 O2 Flow FiO2 Mean Ox Delivery Rate 07/08 0823 97 Nasal 2.0L Cannula 07/08 08 96 Nasal 2.0L Cannula 07/08 08 97.9 74 18 90/60 96 Nasal 2.0L Cannula 07/08 0400 96 Nasal 2.0L Cannula 07/08 0036 97 Nasal 2.0L Cannula 07/08 0000 95 Nasal 2.0L Cannula 07/08 0000 97.7 77 9 96/60 97 Nasal 2.0L Cannula 07/08 1999 96 Nasal 2.0L Cannula 07/07 1946 Nasal 2.0L Cannula 07/07 1730 97.4 78 20 116/48 99 Nasal 2.0L Cannula 07/07 1730 99 Nasal 2.0L Cannula Intake & Output 07/08 1600 07/08 0807/08 0000 07/07 1600 07/07 0000 Intake Total 735 569 Output Total 305 310 Balance 430 259 Intake, IV 615 329 Intake, Oral 120 240 Output, Chest 105 110 Tube Drainage Output, Urine 200 200 Patient 165 lb Weight Weight Bed scale Measurement Method Assessment/Plan Assessment/Plan Patient is doing well after right partial mastectomy and sentinel node biopsy. Dressings are clean dry and in tact with no evidence of hematoma or bleeding. May remove dressing tomorrow. No restrictions to upper extremity. Core Measures Venous Thromboembolism VTE Risk Factors Surgery No Mechanical VTE Prophylaxis d/t N/A MechProphylax Ordered No VTE Pharm Prophylaxis d/t NA PharmProphylax ordered
[2017-07-08 16:00] VITALS: BP 90/50
[2017-07-09] VITALS: BP 110/50
[2017-07-09 04:51] LABS: ABSOLUTE BASOPHIL COUNT 0 /CUMM (0.0-0.2); ABSOLUTE EOSINOPHIL COUNT 0.1 /CUMM (0.0-0.7); ABSOLUTE GRANULOCYTE CT 5.1 /CUMM (1.4-6.5); ABSOLUTE LYMPH COUNT 1.2 /CUMM (1.2-3.4); ABSOLUTE MONOCYTE COUNT 0.6 /CUMM (0.10-0.60); BASOPHIL % 0.5 % (0.0-2.0); HEMATOCRIT 31.7 % (37-47); MEAN CORPUSCULAR HGB 32.2 PG (27.0-31.0); MEAN CORPUSCULAR HGB CONC 33.2 G/DL (33.0-37.0); MEAN CORPUSCULAR VOLUME 97.2 FL (81.0-99.0); MEAN PLATELET VOLUME 7.2 FL (7.4-10.4); PLATELET COUNT 246 /CUMM (130-400); RBC DISTRIBUTION WIDTH 15.7 % (11.5-14.5); RED BLOOD CELL CT 3.26 /CUMM (4.20-5.40); WHITE BLOOD CELL COUNT 7.1 /CUMM (4.8-10.8)
--- NOTE | 2017-07-09 05:48 | PN- Thoracic Surgery ---
Subjective Subjective: pain at thoracotomy incision, helped w pain meds. BP still soft but stable. posterior CT pulled yesterday. Denies SOB. no n/v. adriana diet. OOb to commode at this time. Objective Vital Signs and I&Os Vital Signs Date Time Temp Pulse Resp B/P B/P Pulse O2 O2 Flow FiO2 Mean Ox Delivery Rate 07/09 0400 92 Room Air Room Air 07/09 0043 92 Room Air 07/09 0000 98.6 84 22 110/50 93 Room Air Room Air 07/09 0000 93 Room Air Room Air 07/08 2000 96 Room Air Room Air 07/08 1600 96 Nasal 1.0L Cannula 07/08 1600 98.1 78 18 90/50 98 Nasal 1.0L Cannula 07/08 1600 98 Nasal 2.0L Cannula 07/08 1200 95 Nasal 2.0L Cannula 07/08 0823 97 Nasal 2.0L Cannula 07/08 0800 96 Nasal 2.0L Cannula 07/08 0800 97.9 74 18 90/60 96 Nasal 2.0L Cannula Intake & Output 07/09 0800 07/09 0000 07/08 1600 07/08 0800 07/08 0000 07/07 1600 Intake Total 700 1100 735 569 Output Total 650 424 305 310 Balance 50 676 430 259 Intake, IV 300 615 329 Intake, Oral 700 800 120 240 Output, Chest 100 124 105 110 Tube Drainage Output, Urine 550 300 200 200 Patient 165 lb Weight Weight Bed scale Measurement Method Physical Exam: gen- nad card- s1s2 breast- incisions dressed- cdi. chest- bloody staining on dressing. CT in place to WS, +AL. rhonchi R side, clear left. abd- soft nt ext- calves soft nt, no edema *pod2, dressings not changed as pt on commode. Results Last 48 Hours of Labs: Laboratory Tests 07/09 07/08 0400 0323 Chemistry Sodium (137 - 145 mmol/L) 135 L 138 Potassium (3.5 - 5.1 mmol/L) 4.4 4.7 Chloride (98 - 107 mmol/L) 100 104 Carbon Dioxide (22 - 30 mmol/L) 26 23 Anion Gap (5 - 16) 9 10 BUN (7 - 17 mg/dL) 12 11 Creatinine (0.5 - 1.0 mg/dL) 0.7 0.7 Estimated GFR (>60 ml/min) > 60 > 60 BUN/Creatinine Ratio (7 - 25 %) 15.7 Glucose (65 - 99 mg/dL) 95 Calcium (8.4 - 10.2 mg/dL) 8.4 Phosphorus (2.5 - 4.5 mg/dL) 3.1 Magnesium (1.6 - 2.3 mg/dL) 1.8 Total Bilirubin (0.2 - 1.3 mg/dL) 0.3 AST (14 - 36 U/L) 24 ALT (9 - 52 U/L) 25 Albumin (3.5 - 5.0 g/dL) 3.1 L Hematology CBC w Diff NO MAN DIFF REQ NO MAN DIFF REQ WBC (4.8 - 10.8 /CUMM) 7.1 10.5 RBC (4.20 - 5.40 /CUMM) 3.26 L 3.29 L Hgb (12.0 - 16.0 G/DL) 10.5 L 10.6 L Hct (37 - 47 %) 31.7 L 32.4 L MCV (81.0 - 99.0 FL) 97.2 98.3 MCH (27.0 - 31.0 PG) 32.2 H 32.1 H MCHC (33.0 - 37.0 G/DL) 33.2 32.6 L RDW (11.5 - 14.5 %) 15.7 H 15.3 H Plt Count (130 - 400 /CUMM) 246 246 MPV (7.4 - 10.4 FL) 7.2 L 6.9 L Gran % (42.2 - 75.2 %) 71.0 86.3 H Lymphocytes % (20.5 - 51.1 %) 17.4 L 6.9 L Monocytes % (1.7 - 9.3 %) 9.1 6.8 Eosinophils % (0 - 5 %) 2.0 0 Basophils % (0.0 - 2.0 %) 0.5 0 Absolute Granulocytes (1.4 - 6.5 /CUMM) 5.1 9.0 H Absolute Lymphocytes (1.2 - 3.4 /CUMM) 1.2 0.7 L Absolute Monocytes (0.10 - 0.60 /CUMM) 0.6 0.7 H Absolute Eosinophils (0.0 - 0.7 /CUMM) 0.1 0 Absolute Basophils (0.0 - 0.2 /CUMM) 0 0 Assessment/Plan Assessment/Plan A- POD2 sp R lumpectomy, R thoracotomy/upper lobeectomy, with anterior CT in place to water seal with +AL, with appropriate postop pain P- fu am CXR- possible tiny apical ptx noted on CXR yesterday, continued AL. continue CT on waterseal TRC OOB, PT prn pain meds dvt ppx- hep sq, alps reg diet as tolerated home meds will dw attendings Core Measures Venous Thromboembolism VTE Risk Factors Surgery No Mechanical VTE Prophylaxis d/t N/A MechProphylax Ordered No VTE Pharm Prophylaxis d/t NA PharmProphylax ordered
--- NOTE | 2017-07-09 07:28 | PN- Resident CRCU ---
Subjective HPI/CRCU Issues: No acute events overnight. Patient states that her pain is worse in the posterior chest tube site was pulled. States that she is tired today as she did not get a good sleep last night. 24 Hour Events: Tmax 98.6 HR 7484 [place] 1624 [place] [address]/30/88 9295 percent oxygen saturation on room air/1 L I 2400 O 2324 Objective Vital Signs & I&O Last 8 Hrs of Vitals and I&O: Laboratory Tests 07/09/17 0400: Anion Gap 9, Estimated GFR > 60, Glucose 95, Calcium 8.4, Phosphorus 3.1, Magnesium 1.8, Total Bilirubin 0.3, AST 24, ALT 25, Albumin 3.1 L, CBC w Diff NO MAN DIFF REQ, RBC 3.26 L, MCV 97.2, MCH 32.2 H, MCHC 33.2, RDW 15.7 H, MPV 7.2 L, Gran % 71.0, Lymphocytes % 17.4 L, Monocytes % 9.1, Eosinophils % 2.0, Basophils % 0.5, Absolute Granulocytes 5.1, Absolute Lymphocytes 1.2, Absolute Monocytes 0.6, Absolute Eosinophils 0.1, Absolute Basophils 0 Vital Signs Date Time Temp Pulse Resp B/P B/P Pulse O2 O2 Flow FiO2 Mean Ox Delivery Rate 07/09 0853 97 Room Air 07/09 0400 92 Room Air Room Air Exam General Appearance: no apparent distress, alert, awake Respiratory: decreased breath sounds bilaterally. Right middle and lower basal lung crackles. Mild left lower base crackles Cardiovascular: regular rate/rhythm Gastrointestinal: normal bowel sounds, soft, right-sided abdominal pain, tenderness to palpation Extremities: prior right thoracic chest tube site covered with dressing. Dressing is soaked with blood., 2+ radial pulses, trace lower extremity edema Current Medications: Current Medications Sig/Ronnie Start time Last Medication Dose Route Stop Time Status Admin Acetaminophen 1,000 MG Q6H 07/07 1745 AC 07/10 PO 0500 Albuterol Sulfate 3 ML Q4 07/07 2200 AC 07/10 INH 0419 Albuterol Sulfate 2 PUF Q6P PRN 07/07 174 AC INH Aspirin 81 MG DAILY 07/08 0900 AC 07/09 PO 0852 Atorvastatin Calcium 20 MG 1700 07/08 1700 AC 07/09 PO 1733 Benztropine Mesylate 0.5 MG BID 07/07 2099 AC 07/09 PO 2028 Budesonide/ 2 PUF BID 07/07 2099 AC 07/09 Formoterol Fumarate INH 2028 Celecoxib 100 MG BID 07/07 2099 AC 07/09 PO 2339 Gabapentin 300 MG TID 07/07 2099 AC 07/09 PO 2028 Heparin Sodium 5,000 UNIT Q8 07/070 AC 07/10 (Porcine) SC 0618 Hydromorphone HCl 0.4 MG Q4 HRS NEEDED PRN 07/08 0545 AC 07/09 IV 0055 Lamotrigine 100 MG BID 07/07 2099 AC 07/09 PO 2028 Nicotine 7 MG DAILY 07/08 0900 AC TOP Olanzapine 7.5 MG QPM 07/07 2099 AC 07/09 PO 2029 Ondansetron HCl 4 MG Q6P PRN 07/09 1930 AC IV Oxycodone HCl 5 MG Q4 HRS NEEDED PRN 07/07 174 AC PO Oxycodone HCl 10 MG Q4H PRN 07/07 1745 AC 07/09 PO 2028 Polyethylene Glycol 17 GM DAILY 07/08 0900 AC 07/09 PO 0853 Risperidone 3 MG QPM 07/07 2099 AC 07/09 PO 2028 Trazodone HCl 150 MG QPM 07/07 2099 AC 07/09 PO 2029 Impression/Plan Impression/Problem List Impression: 62 YO F with pmhx of tobacco use, right sided NSCLC s/p chemo/radio and right sided breast cancer s/p lobectomy with lymph node dissection and partial mastectomy with lymph node biopsy. Problem list 1. s/p Right upper lobectomy with LN dissection and chest tube in place in the setting of stage IIIa NSCLC 2. s/p right partial mastectomy with LN biopsy 3. Subcutaneous emphysema postoperatively 4. Anxiety/depression, 5. COPD, Active smoker 6. Post op R apical ptx 7. Mild anemia Plan -repeat CXR: No significant right pneumothorax is demonstrated. -Closer monitoring in the setting of major thoracic surgery. Monitor mild anemia in the setting of recent surgery. -cont incentive spirometry, pulmonary toileting -Continue chest tubes x1 (anterior) per surgery. posterior tubed pulled, aggressive pulmonary toilet, trc/nebs -Nicotine patch given dependence -Continue psychiatry medicaitons including lamotrigine, olanzepine, Risperidone, benztropine -Pain management with celecoxib, oxycodone -Aggressive bowel regimen while on pain medications: miralax -Continue home medications including, ASA, Atrovastatin, trazodone, gabapentin, symbicort, albuterol -On regular diet, advanced diet per surgery -DVT prophylaxis: SC heparin -Code status: Full code Problem List: 1. S/P lobectomy of lung 2. S/P partial mastectomy Pain Ratin Tomorrow's Labs & Rationales: icu cbc Plan DVT/Prophylaxis: sc heparin
[2017-07-09 08:00] VITALS: BP 94/50
--- NOTE | 2017-07-09 08:10 | RADIOLOGY REPORT ---
EXAMINATION: XR PORTABLE CHEST CLINICAL INFORMATION: Shortness of breath. Right pneumothorax status post right upper lobectomy. COMPARISON: Chest x-ray 07/08/2017. TECHNIQUE: Portable AP 80 degrees semiupright view of the chest was obtained. FINDINGS: On the current study, 1 chest tube is visualized in the right chest. The 2 is at the apex. There is no significant residual pneumothorax. There is persistent elevation of the right hemidiaphragm, with loss of volume of the right lung. There is hazy opacity in the right midzone. Linear opacities are noted at the left base consistent with atelectasis. The cardiac silhouette is unchanged. The prominence of the right hilar is stable. There is a chest port from the left chest with the tip in the SVC, unchanged. There are no acute osseous findings. There are multiple monitor leads overlying the chest. IMPRESSION: 1. Interval removal of one of the right-sided chest tubes. A right-sided chest tube with tip toward the apex is unchanged in position. 2. No significant right pneumothorax is demonstrated.
--- NOTE | 2017-07-09 09:46 | PN- Pulmonary ---
Subjective HPI/Critical Care Issues: Patient is comfortable on room air without shortness of breath Objective Current Medications: Current Medications Sig/Ronnie Start time Last Medication Dose Route Stop Time Status Admin Acetaminophen 1,000 MG Q6H 07/07 1745 AC 07/08 PO 1639 Albuterol Sulfate 3 ML Q4 07/07 2200 AC 07/09 INH 0848 Albuterol Sulfate 2 PUF Q6P PRN 07/07 174 AC INH Aspirin 81 MG DAILY 07/08 0900 AC 07/09 PO 0852 Atorvastatin Calcium 20 MG 1700 07/08 1700 AC 07/08 PO 1620 Benztropine Mesylate 0.5 MG BID 07/07 2099 AC 07/09 PO 0852 Budesonide/ 2 PUF BID 07/07 2099 AC 07/09 Formoterol Fumarate INH 0853 Celecoxib 100 MG BID 07/07 2099 AC 07/09 PO 0852 Dextrose/Sodium 1,000 ML .[id number] 07/07 1745 DC 07/08 Chloride IV 0223 Gabapentin 300 MG TID 07/07 2099 AC 07/09 PO 0853 Heparin Sodium 5,000 UNIT Q8 07/07 2199 AC 07/09 (Porcine) SC 0549 Hydromorphone HCl 0.4 MG Q4 HRS NEEDED PRN 07/08 0545 AC 07/09 IV 0055 Lamotrigine 100 MG BID 07/07 2099 AC 07/09 PO 0852 Nicotine 7 MG DAILY 07/08 09 AC TOP Olanzapine 7.5 MG QPM 07/07 2100 AC 07/08 PO 2054 Oxycodone HCl 5 MG Q4 HRS NEEDED PRN 07/07 174 AC PO Oxycodone HCl 10 MG Q4H PRN 07/07 1745 AC 07/09 PO 0907 Polyethylene Glycol 17 GM DAILY 07/08 09 AC 07/09 PO 0853 Risperidone 3 MG QPM 07/07 2099 AC 07/08 PO 205 Trazodone HCl 150 MG QPM 07/07 2099 AC 07/08 PO 2056 Vital Signs & I&O Last 24 Hrs of Vitals and I&O: Vital Signs Date Time Temp Pulse Resp B/P B/P Pulse O2 O2 Flow FiO2 Mean Ox Delivery Rate 07/09 0853 97 Room Air 07/09 0400 92 Room Air Room Air 07/09 0043 92 Room Air 07/09 0000 98.6 84 22 110/50 93 Room Air Room Air 07/09 0000 93 Room Air Room Air 07/08 2000 96 Room Air Room Air 07/08 1600 96 Nasal 1.0L Cannula 07/08 1600 98.1 78 18 90/50 98 Nasal 1.0L Cannula 07/08 1600 98 Nasal 2.0L Cannula 07/08 1200 95 Nasal 2.0L Cannula Intake & Output 07/09 1600 07/09 0800 07/09 0000 Intake Total 600 700 Output Total 1250 650 Balance -650 50 Intake, Oral 600 700 Output, Chest 50 100 Tube Drainage Output, Urine 1200 550 Monitor oxygen saturation 97% exam for chest shows mildly diminished breath sounds over the right posterior chest are no wheezes cardiac exam shows regular S1 and S2 chest x-ray shows no pneumothorax in one chest tube is been removed Impression/Plan Impression/Plan Impression/Plan: EC 2-year-old status post thoracotomy for resection of lung cancer. Pulmonary status is stable now on room air. Chest tube does not appear to demonstrate air leak Recommendations: Continue incentive spirometry. Await CT surgery for removal of remaining chest tube.
[2017-07-09 16:00] VITALS: BP 104/60
[2017-07-10] VITALS: BP 120/50
[2017-07-10 05:35] LABS: ABSOLUTE BASOPHIL COUNT 0 /CUMM (0.0-0.2); ABSOLUTE EOSINOPHIL COUNT 0.1 /CUMM (0.0-0.7); ABSOLUTE GRANULOCYTE CT 4.5 /CUMM (1.4-6.5); ABSOLUTE LYMPH COUNT 0.9 /CUMM (1.2-3.4); ABSOLUTE MONOCYTE COUNT 0.4 /CUMM (0.10-0.60); BASOPHIL % 0.3 % (0.0-2.0); EOSINOPHIL % 1.9 % (0-5); GRANULOCYTE % 74.9 % (42.2-75.2); HEMATOCRIT 31.7 % (37-47); MEAN CORPUSCULAR HGB 32.6 PG (27.0-31.0); MEAN CORPUSCULAR HGB CONC 33.4 G/DL (33.0-37.0); MEAN CORPUSCULAR VOLUME 97.6 FL (81.0-99.0); MEAN PLATELET VOLUME 6.9 FL (7.4-10.4); PLATELET COUNT 242 /CUMM (130-400); RBC DISTRIBUTION WIDTH 15.8 % (11.5-14.5); RED BLOOD CELL CT 3.25 /CUMM (4.20-5.40)
--- NOTE | 2017-07-10 06:13 | RADIOLOGY REPORT ---
EXAMINATION: XR PORTABLE CHEST CLINICAL INFORMATION: Right upper lobectomy COMPARISON: 07/09/2017 TECHNIQUE: Portable frontal view of the chest was obtained. FINDINGS: Left chest wall CT compatible port remains in place, with the tip unchanged in the region of the confluence of the left brachiocephalic vein and superior vena cava. Right-sided chest tube in place. Low lung volumes. There is no pneumothorax seen. No dense consolidation. No pleural effusion. The cardiomediastinal silhouette is unchanged. IMPRESSION: Right-sided chest tube in place. No pneumothorax seen.
--- NOTE | 2017-07-10 07:16 | PN- Resident CRCU ---
Subjective HPI/CRCU Issues: No acute events overnight. Rt apical ptx resolved. She states that her pain is improved however she feels groggy. Anterior chest tube pulled. Objective Vital Signs & I&O Last 8 Hrs of Vitals and I&O: Vital Signs Date Time Temp Pulse Resp B/P B/P Pulse O2 O2 Flow FiO2 Mean Ox Delivery Rate 07/10 1615 97 Nasal 5.0L Cannula 07/10 1600 98 Room Air Room Air 07/10 1600 96.7 82 20 96/50 94 Room Air Room Air 07/10 1200 94 Room Air Room Air Intake & Output 07/10 1600 Intake Total 1000 Output Total 300 Balance 700 Intake, Oral 1000 Number 1 Bowel Movements Output, Urine 300 Intake & Output 07/10 1600 Intake Total 1000 Output Total 300 Balance 700 Intake, Oral 1000 Number 1 Bowel Movements Output, Urine 300 Exam General Appearance: alert, awake Respiratory: diffuse crackles Cardiovascular: regular rate/rhythm Gastrointestinal: normal bowel sounds, soft, non-tender Extremities: no LE edema. 2+ radial pulses Current Medications: Current Medications Sig/Ronnie Start time Last Medication Dose Route Stop Time Status Admin Acetaminophen 1,000 MG Q6H 07/07 1745 AC 07/10 PO 1706 Acetylcysteine 2 ML BID 07/10 0900 AC INH Albuterol Sulfate 3 ML EVERY 4 HRS/AWAKE 07/10 1600 AC 07/10 INH 1615 Albuterol Sulfate 3 ML Q4 07/07 2200 DC 07/10 INH 1125 Albuterol Sulfate 2 PUF Q6P PRN 07/07 1745 AC INH Aspirin 81 MG DAILY 07/08 0900 AC 07/10 PO 0902 Atorvastatin Calcium 20 MG 1700 07/08 1700 AC 07/10 PO 1706 Benztropine Mesylate 0.5 MG BID 07/07 2100 AC 07/10 PO 0902 Bisacodyl 10 MG .STK-MED ONE 07/10 1616 DC [place] 07/10 1617 Bisacodyl 10 MG ONCE ONE 07/10 1000 DC 07/10 [place] 07/10 1001 1208 Budesonide/ 2 PUF BID 07/07 2100 AC 07/10 Formoterol Fumarate INH 0902 Celecoxib 100 MG BID 07/07 2100 AC 07/10 PO 0901 Docusate Sodium 100 MG BID 07/10 1000 AC 07/10 PO 1208 Gabapentin 300 MG TID 07/07 2100 AC 07/10 PO 1318 Heparin Sodium 5,000 UNIT Q8 07/07 2200 AC 07/10 (Porcine) SC 1319 Hydromorphone HCl 0.4 MG Q4 HRS NEEDED PRN 07/08 0545 AC 07/09 IV 0055 Lamotrigine 100 MG BID 07/07 2099 AC 07/10 PO 0902 Nicotine 7 MG DAILY 07/08 0900 AC TOP Olanzapine 7.5 MG QPM 07/07 2100 AC 07/09 PO 2030 Ondansetron HCl 4 MG Q6P PRN 07/09 1930 AC IV Oxycodone HCl 10 MG .STK-MED ONE 07/10 0855 DC PO 07/10 0856 Oxycodone HCl 5 MG Q4 HRS NEEDED PRN 07/07 1745 AC PO Oxycodone HCl 10 MG Q4H PRN 07/07 1745 AC 07/10 PO 0903 Polyethylene Glycol 17 GM DAILY 07/08 0900 AC 07/10 PO 09 Risperidone 3 MG QPM 07/07 2100 AC 07/09 PO 2028 Trazodone HCl 150 MG QPM 07/07 2100 AC 07/09 PO 2029 Impression/Plan Impression/Problem List Impression: 62 YO F with pmhx of tobacco use, right sided NSCLC s/p chemo/radio and right sided breast cancer s/p lobectomy with lymph node dissection and partial mastectomy with lymph node biopsy. Problem list 1. s/p Right upper lobectomy with LN dissection and chest tube in place in the setting of stage IIIa NSCLC 2. s/p right partial mastectomy with LN biopsy 3. Subcutaneous emphysema postoperatively 4. Anxiety/depression, 5. COPD, Active smoker 6. Post op R apical ptx 7. Mild anemia Plan -repeat CXR: right pneumothorax resolved -Closer monitoring in the setting of major thoracic surgery. Monitor mild anemia in the setting of recent surgery which remain stable. -cont incentive spirometry, pulmonary toileting -chest tubes x2 removed -Nicotine patch given dependence -Continue psychiatry medicaitons including lamotrigine, olanzepine, Risperidone, benztropine -Pain management with celecoxib, oxycodone -Aggressive bowel regimen while on pain medications: miralax -Continue home medications including, ASA, Atrovastatin, trazodone, gabapentin, symbicort, albuterol -On regular diet, advanced diet per surgery -DVT prophylaxis: SC heparin -Code status: Full code Problem List: 1. S/P lobectomy of lung 2. S/P partial mastectomy Pain Ratin Tomorrow's Labs & Rationales: cbc icu Plan DVT/Prophylaxis: sc heparin
[2017-07-10 08:00] VITALS: BP 100/60
--- NOTE | 2017-07-10 08:22 | PN- Pulmonary ---
Subjective HPI/Critical Care Issues: Patient is more congested this morning chest tube remains in placePatient is more congested this morning chest tube remains in place Objective Current Medications: Current Medications Sig/Ronnie Start time Last Medication Dose Route Stop Time Status Admin Acetaminophen 1,000 MG Q6H 07/07 1745 AC 07/10 PO 0500 Albuterol Sulfate 3 ML Q4 07/07 2200 AC 07/10 INH 0419 Albuterol Sulfate 2 PUF Q6P PRN 07/07 174 AC INH Aspirin 81 MG DAILY 07/08 09 AC 07/09 PO 0852 Atorvastatin Calcium 20 MG 1700 07/08 1700 AC 07/09 PO 1733 Benztropine Mesylate 0.5 MG BID 07/07 2099 AC 07/09 PO 2028 Budesonide/ 2 PUF BID 07/07 2099 AC 07/09 Formoterol Fumarate INH 2028 Celecoxib 100 MG BID 07/07 2100 AC 07/09 PO 2340 Gabapentin 300 MG TID 07/07 2099 AC 07/09 PO 2028 Heparin Sodium 5,000 UNIT Q8 07/07 2199 AC 07/10 (Porcine) SC 0618 Hydromorphone HCl 0.4 MG Q4 HRS NEEDED PRN 07/08 0545 AC 07/09 IV 0055 Lamotrigine 100 MG BID 07/07 2099 AC 07/09 PO 2028 Nicotine 7 MG DAILY 07/08 09 AC TOP Olanzapine 7.5 MG QPM 07/07 2099 AC 07/09 PO 2030 Ondansetron HCl 4 MG Q6P PRN 07/09 1930 AC IV Oxycodone HCl 5 MG Q4 HRS NEEDED PRN 07/07 174 AC PO Oxycodone HCl 10 MG Q4H PRN 07/07 1745 AC 07/09 PO 2028 Polyethylene Glycol 17 GM DAILY 07/08 09 AC 07/09 PO 0853 Risperidone 3 MG QPM 07/07 2099 AC 07/09 PO 2028 Trazodone HCl 150 MG QPM 07/07 2099 AC 07/09 PO 2029 Vital Signs & I&O Last 24 Hrs of Vitals and I&O: Vital Signs Date Time Temp Pulse Resp B/P B/P Pulse O2 O2 Flow FiO2 Mean Ox Delivery Rate 07/10 0400 95 Nasal 2.0L Cannula 07/10 0046 94 Nasal 2.0L Cannula 07/10 0000 97.9 88 16 120/50 93 Nasal 2.0L Cannula 07/10 0000 93 Nasal 2.0L Cannula 07/09 2100 94 Nasal 2.0L Cannula 07/09 2000 95 Nasal 2.0L Cannula 07/09 1640 94 Nasal 2.0L Cannula 07/09 1600 93 Nasal 1.0L Cannula 07/09 1600 97.6 87 18 104/60 93 Nasal 1.0L Cannula 07/09 1200 96 Nasal 1.0L Cannula 07/09 0853 97 Room Air Intake & Output 07/10 0800 07/10 0000 Intake Total 200 600 Output Total 1040 725 Balance -840 -125 Intake, Oral 200 600 Output, Chest 40 50 Tube Drainage Output, 200 Emesis Output, Urine 1000 475 Saturation 2 L 95% exam for chest shows occasional rhonchi breath sounds at the bases are diminished cardiac exam shows regular S1 and S2 without murmurs chest x-ray shows no pneumothorax but low lung volumes 95% exam of her chest shows occasional rhonchi present sounds at the bases are diminished cardiac exam shows regular S1 and S2 without murmurs chest x-ray shows no pneumothorax but low lung volumes oxygen saturation 2 L Impression/Plan Impression/Plan Impression/Plan: 62-year-old status post thoracotomy in the setting of COPD as increasing congestion and resumption of low flow oxygen and 62-year-old status post thoracotomy in the setting of COPD has increasing congestion Recommendations: Taper FiO2 his saturations allow. . Flutter valve can be utilized aggressive pulmonary toilet if secretions remain tenacious nebulized Mucomyst can be utilized mobilized out of bed culture sputum
--- NOTE | 2017-07-10 10:07 | PN- Thoracic Surgery ---
Subjective Subjective: patient resting comfortably at bedside in left lat decub position chest tube removed without difficulty patient tolerated procedure occluisve drsg applied will f/u with cxr in am Objective Vital Signs and I&Os Vital Signs Date Time Temp Pulse Resp B/P B/P Pulse O2 O2 Flow FiO2 Mean Ox Delivery Rate 07/10 0800 96 Nasal 2.0L Cannula 07/10 0800 97.2 78 18 100/60 96 Nasal 2.0L Cannula 07/10 0400 95 Nasal 2.0L Cannula 07/10 0046 94 Nasal 2.0L Cannula 07/10 0000 97.9 88 16 120/50 93 Nasal 2.0L Cannula 07/10 0000 93 Nasal 2.0L Cannula 07/09 2100 94 Nasal 2.0L Cannula 07/09 2000 95 Nasal 2.0L Cannula 07/09 1640 94 Nasal 2.0L Cannula 07/09 1600 93 Nasal 1.0L Cannula 07/09 1600 97.6 87 18 104/60 93 Nasal 1.0L Cannula 07/09 1200 96 Nasal 1.0L Cannula Intake & Output 07/10 1600 07/10 0800 07/10 0000 07/09 1600 07/09 0800 07/09 0000 Intake Total 502 949 8894 600 700 Output Total 1040 793 657 5731 650 Balance -840 -125 700 -650 50 Intake, Oral 246 045 2060 600 700 Output, Chest 40 50 50 100 Tube Drainage Output, 200 Emesis Output, Urine 1000 623 193 8223 550 Physical Exam: cv: rrr lungs; scattered rhonchi abd: soft, +bs ext: warm, distal cms intact all extremities Assessment/Plan Assessment/Plan s/p rul lobectomy s/p right breast biopsy plan cont icu today pulm toliet/mucomyst oob/ambulate in room Core Measures Venous Thromboembolism VTE Risk Factors Surgery No Mechanical VTE Prophylaxis d/t N/A MechProphylax Ordered No VTE Pharm Prophylaxis d/t NA PharmProphylax ordered
[2017-07-10 16:00] VITALS: BP 96/50
[2017-07-11] VITALS: BP 92/50
[2017-07-11 05:48] LABS: ABSOLUTE BASOPHIL COUNT 0 /CUMM (0.0-0.2); ABSOLUTE EOSINOPHIL COUNT 0.2 /CUMM (0.0-0.7); ABSOLUTE GRANULOCYTE CT 7.7 /CUMM (1.4-6.5); ABSOLUTE LYMPH COUNT 0.5 /CUMM (1.2-3.4); ABSOLUTE MONOCYTE COUNT 0.6 /CUMM (0.10-0.60); BASOPHIL % 0 % (0.0-2.0); EOSINOPHIL % 1.9 % (0-5); GRANULOCYTE % 85.5 % (42.2-75.2); HEMATOCRIT 32.1 % (37-47); MEAN CORPUSCULAR HGB 32.9 PG (27.0-31.0); MEAN CORPUSCULAR HGB CONC 33.9 G/DL (33.0-37.0); MEAN CORPUSCULAR VOLUME 97.2 FL (81.0-99.0); MEAN PLATELET VOLUME 6.9 FL (7.4-10.4); PLATELET COUNT 252 /CUMM (130-400); RBC DISTRIBUTION WIDTH 15.3 % (11.5-14.5); WHITE BLOOD CELL COUNT 8.9 /CUMM (4.8-10.8)
--- NOTE | 2017-07-11 06:50 | PN- General Surgery ---
Subjective Subjective: Patient doing well. Feels ready to go home with vna services. Has been ambulating, voiding, tolerating a regular diet, and pain is well controlled with oral analgesia. Objective Vital Signs and I&Os Vital Signs Date Time Temp Pulse Resp B/P B/P Pulse O2 O2 Flow FiO2 Mean Ox Delivery Rate 07/11 0400 94 Nasal 2.0L Cannula 07/11 0000 94 Nasal 2.0L Cannula 07/11 0000 97.4 88 88 92/50 94 Nasal 2.0L Cannula 07/10 2200 93 Room Air Room Air 07/10 2000 93 Room Air Room Air 07/10 1615 92 Room Air Room Air 07/10 1615 97 Nasal 5.0L Cannula 07/10 1600 98 Room Air Room Air 07/10 1600 96.7 82 20 96/50 94 Room Air Room Air 07/10 1200 94 Room Air Room Air 07/10 0821 95 Nasal 2.0L Cannula 07/10 0800 96 Nasal 2.0L Cannula 07/10 0800 97.2 78 18 100/60 96 Nasal 2.0L Cannula Intake & Output 07/11 0800 07/11 0000 07/10 1600 07/10 0800 07/10 0000 07/09 1600 Intake Total 887 028 9228 331 953 8564 Output Total 1300 473 263 2090 725 300 Balance -1180 20 700 -840 -125 700 Intake, Oral 406 652 4076 087 443 1534 Number 1 1 Bowel Movements Output, Chest 40 50 Tube Drainage Output, 200 Emesis Output, Stool 550 Output, Urine 9643 376 8120 475 300 Physical Exam: General: A, A, NAD Right Breast: Dressing c/d/i with dressing in place w/out any strikethrough or surrounding edema, erythema or induration Right Chest: Dressing c/d/i with dressing in place w/out any strikethrough or surrounding edema, erythema or induration Extremities: No clubbing, cyanosis or edema Current Medications: Current Medications Sig/Ronnie Start time Last Medication Dose Route Stop Time Status Admin Acetaminophen 1,000 MG Q6H 07/07 1745 AC 07/11 PO 0520 Acetylcysteine 2 ML BID 07/10 0900 AC INH Albuterol Sulfate 3 ML EVERY 4 HRS/AWAKE 07/10 1600 AC 07/10 INH 1615 Albuterol Sulfate 3 ML Q4 07/07 2200 DC 07/10 INH 1125 Albuterol Sulfate 2 PUF Q6P PRN 07/07 1745 AC INH Aspirin 81 MG DAILY 07/08 0900 AC 07/10 PO 0902 Atorvastatin Calcium 20 MG 1700 07/08 1700 AC 07/10 PO 1706 Benztropine Mesylate 0.5 MG BID 07/07 2100 AC 07/10 PO 211 Bisacodyl 10 MG .STK-MED ONE 07/10 1616 DC AL 07/10 1617 Bisacodyl 10 MG ONCE ONE 07/10 1000 DC 07/10 AL 07/10 1001 1208 Budesonide/ 2 PUF BID 07/07 2100 AC 07/10 Formoterol Fumarate INH 2114 Celecoxib 100 MG BID 07/07 2100 AC 07/10 PO 211 Docusate Sodium 100 MG BID 07/10 1000 AC 07/10 PO 1208 Gabapentin 300 MG TID 07/07 2099 AC 07/10 PO 211 Heparin Sodium 5,000 UNIT .STK-MED ONE 07/10 2106 DC (Porcine) IV 07/10 210 Heparin Sodium 5,000 UNIT Q8 07/07 2199 AC 07/11 (Porcine) SC 0521 Hydromorphone HCl 0.4 MG Q4 HRS NEEDED PRN 07/08 0545 AC 07/10 IV 2047 Lamotrigine 100 MG BID 07/07 2099 AC 07/10 PO 211 Nicotine 7 MG DAILY 07/08 899 AC TOP Olanzapine 7.5 MG QPM 07/07 2099 AC 07/10 PO 2110 Ondansetron HCl 4 MG Q6P PRN 07/09 1930 AC IV Oxycodone HCl 10 MG .STK-MED ONE 07/10 0855 DC PO 07/10 0856 Oxycodone HCl 5 MG Q4 HRS NEEDED PRN 07/07 1745 AC 07/10 PO 1842 Oxycodone HCl 10 MG Q4H PRN 07/07 1745 AC 07/11 PO 0553 Polyethylene Glycol 17 GM DAILY 07/08 09 AC 07/10 PO 0903 Risperidone 3 MG QPM 07/07 2099 AC 07/10 PO 211 Trazodone HCl 150 MG QPM 07/07 2099 AC 07/10 PO 2110 Results Last 48 Hours of Labs: Laboratory Tests 07/11 07/10 0535 0455 Chemistry Sodium (137 - 145 mmol/L) 139 138 Potassium (3.5 - 5.1 mmol/L) 4.9 4.5 Chloride (98 - 107 mmol/L) 101 100 Carbon Dioxide (22 - 30 mmol/L) 29 30 Anion Gap (5 - 16) 9 8 BUN (7 - 17 mg/dL) 11 12 Creatinine (0.5 - 1.0 mg/dL) 0.6 0.6 Estimated GFR (>60 ml/min) > 60 > 60 BUN/Creatinine Ratio (7 - 25 %) 20.0 Glucose (65 - 99 mg/dL) 95 Calcium (8.4 - 10.2 mg/dL) 8.7 Phosphorus (2.5 - 4.5 mg/dL) 4.9 H Magnesium (1.6 - 2.3 mg/dL) 1.8 Total Bilirubin (0.2 - 1.3 mg/dL) 0.8 AST (14 - 36 U/L) 58 H ALT (9 - 52 U/L) 52 Albumin (3.5 - 5.0 g/dL) 3.0 L Hematology CBC w Diff MAN DIFF ORDERED NO MAN DIFF REQ WBC (4.8 - 10.8 /CUMM) 8.9 6.0 RBC (4.20 - 5.40 /CUMM) 3.30 L 3.25 L Hgb (12.0 - 16.0 G/DL) 10.9 L 10.6 L Hct (37 - 47 %) 32.1 L 31.7 L MCV (81.0 - 99.0 FL) 97.2 97.6 MCH (27.0 - 31.0 PG) 32.9 H 32.6 H MCHC (33.0 - 37.0 G/DL) 33.9 33.4 RDW (11.5 - 14.5 %) 15.3 H 15.8 H Plt Count (130 - 400 /CUMM) 252 242 MPV (7.4 - 10.4 FL) 6.9 L 6.9 L Gran % (42.2 - 75.2 %) 85.5 H 74.9 Lymphocytes % (20.5 - 51.1 %) 6.0 L 15.7 L Monocytes % (1.7 - 9.3 %) 6.6 7.2 Eosinophils % (0 - 5 %) 1.9 1.9 Basophils % (0.0 - 2.0 %) 0 0.3 Absolute Granulocytes (1.4 - 6.5 /CUMM) 7.7 H 4.5 Segmented Neutrophils (42.2 - 75.2 %) 68 Band Neutrophils (0.0 - 5.0 %) 6 H Absolute Lymphocytes (1.2 - 3.4 /CUMM) 0.5 L 0.9 L Lymphocytes (20.5 - 51.1 %) 16 L Monocytes (1.7 - 9.3 %) 5 Absolute Monocytes (0.10 - 0.60 /CUMM) 0.6 0.4 Eosinophils (0 - 5.0 %) 3 Absolute Eosinophils (0.0 - 0.7 /CUMM) 0.2 0.1 Basophils (0.0 - 2.0 %) 2 Absolute Basophils (0.0 - 0.2 /CUMM) 0 0 Platelet Estimate (ADEQUATE) ADEQUATE Normocytic RBCs VERIFIED Normochromic RBCs VERIFIED 07/09 2200 Hematology CBC w Diff Cancelled WBC Cancelled RBC Cancelled Hgb Cancelled Hct Cancelled MCV Cancelled MCH Cancelled MCHC Cancelled RDW Cancelled Plt Count Cancelled MPV Cancelled Recent Imaging Studies: CXR 07/11/17: Pending Assessment/Plan Assessment/Plan This is a 62 yo female who is s/p Right Breast Lumpectomy and RUL Lobectomy with CT placement since removed. Ambulate/IS Pain Control GI/DVT Px VNA Regular Diet F/U CXR Likely home today Will d/w attending Core Measures Venous Thromboembolism VTE Risk Factors Surgery No Mechanical VTE Prophylaxis d/t N/A MechProphylax Ordered No VTE Pharm Prophylaxis d/t NA PharmProphylax ordered
[2017-07-11] MEDS ORDERED: OXYCODONE-ACET1 EACH PO ×3 (06:52→07:15)
[2017-07-11] MEDS ORDERED: MIRALAX119 GM PO (06:52)
[2017-07-11] MEDS ORDERED: COLACE100 M1 PO (06:52)
--- NOTE | 2017-07-11 07:01 | Patient Discharge Instructions ---
Discharge Instructions General Discharge Information You were seen/treated for: Right Breast and Lung Cancer You had these procedures: Right breast lumpectomy, Right upper lobe lobectomy with chest tube placement since removed Watch for these problems: Cough, chest pain, shortness of breath, fevers, chills, increased pain, redness, swelling, or unusual drainage Do not soak the wound: Yes Daily wet to dry dressings: No No bath, but you may shower: Yes Other wound care: Right breast wound checks, may use dsd and a tegederm, Right chest tube site leave dressing in place and then remove in 72 hours and leave open to air Diet Continue normal diet: Yes Recommended Diet: Regular Activity Full Activity/No Limits: No Activity Self Limited: Yes Pounds, do NOT lift more than: 10 Activity Limited to: Weight bear as tolerated Acute Coronary Syndrome Inclusion Criteria At DC or during hospital stay patient has or had the following: ACS DIAGNOSIS No Discharge Core Measures Meds if any: Prescribed or Continued at Discharge Meds if any: NOT Prescribed or Continued at Discharge Congestive Heart Failure Inclusion Criteria At DC or during hospital stay patient has or had the following: CHF DIAGNOSIS No Discharge Core Measures Meds if any: Prescribed or Continued at Discharge Meds if any: NOT Prescribed or Continued at Discharge Cerebrovascular accident Inclusion Criteria At DC or during hospital stay patient has or had the following: CVA/TIA Diagnosis No Discharge Core Measures Meds if any: Prescribed or Continued at Discharge Meds if any: NOT Prescribed or Continued at Discharge Venous thromboembolism Inclusion Criteria VTE Diagnosis No VTE Type NONE VTE Confirmed by (Test) NONE Discharge Core Measures - Per Current guidelines, there needs to be overlap - treatment for the first 5 days of Warfarin therapy. - If discharged on Warfarin prior to 5 days of - overlap therapy, the patient will need to be - assessed for post discharge needs including - *Post discharge parental anticoagulation - *Warfarin and/or parental anticoagulation education - *Follow up date to check INR post discharge At least 5 days overlap therapy as Inpatient No Meds if any: Prescribed or Continued at Discharge Note: Overlap Therapy is Warfarin and Anticoagulant Meds if any: NOT Prescribed or Continued at Discharge
--- NOTE | 2017-07-11 07:14 | Surgical Discharge Summary ---
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 Home Who Do You Live With? Son What is Your Primary Language? Czech Review of Systems: as per hpi Physical Exam: General: A, A, NAD Right Breast: Dressing c/d/i with dressing in place w/out any strikethrough or surrounding edema, erythema or induration Right Chest: Dressing c/d/i with dressing in place w/out any strikethrough or surrounding edema, erythema or induration Extremities: No clubbing, cyanosis or edema Hospital Course Course Attending Physician: Dwain Spencer MD,Yony Mckinney Primary Care Physician: Jan BECKER,Judson [facility] Course: This is a 62 yo female who presented electively on 07/07/17 for Right Breast Lumpectomy and Right Upper Lobe Lobectomy with chest tube placement. Chest tube was removed on POD#3 without complication. Diet was advanced in a stepwise fashion. Wounds were monitored during her stay. Diet was advanced in a stepwise fashion as tolerated. She was treated with analgesics and antiemetics. She followed an ERAS protocol. She remained in the ICU for pulmonary toilet during her stay. She had GI and DVT Px during her stay. By time of discharge patient was ambulating, voiding, tolerating a regular diet and pain was well controlled with oral analgesia. Plan is for the patient to follow up with Dr. Prakash and Dr. Manning as an outpatient in 1-2 weeks. She is being discharged with VNA for wound checks/care. Remainder of the details of her hospital course, operative report and diagnostic studies can be found in her electronic chart. Allergies: Coded Allergies: codeine (Intermediate, ITCHING, HIVES 07/07/17) morphine (itch 07/03/17) buspirone (From BUSPAR) (CANT SPEAK, STUTTERS 07/07/17) lurasidone (From LATUDA) (SEIZURE 07/03/17) Significant Procedures: 07/07/17 for Right Breast Lumpectomy and Right Upper Lobe Lobectomy with chest tube placement Disposition Summary Disposition Principal Diagnosis: Right Breast and Right Lung Cancer Additional Diagnosis: none Discharge Disposition: home health services Discharge Instructions General Discharge Information Code Status: Full Code Patient's Diet: Regular Patient's Activity: as tolerated, no heavy lifting Follow-Up Instructions/Appts: as per electronic discharge instructions Medications at Discharge Discharge Medications: Continue taking these medications: Aspirin (Ecotrin*) 81 MG TABLET.DR 1 Tablet ORAL DAILY Comments: Last Taken:04/14/17 Time:0800 Fluticasone/Salmeterol (Advair 250-50 Diskus) 250 MCG-50 MCG/DOSE BLST.W.DEV 1 Puff Inhale through mouth TWICE DAILY Qty = 60 Comments: Last Taken:NOT GIVEN IN THE HOSPITAL Time: Polyethylene Glycol 3350 (Miralax) 17 GRAM POWD.PACK 1 Packet ORAL DAILY Instructions: dissolve in water Comments: Last Taken:04/14/17 Time:0800 Albuterol Sulfate (Ventolin Hfa) 90 MCG HFA.AER.AD 2 Puff Inhale through mouth EVERY SIX HOURS NEEDED as needed for asthma Qty = 1 Comments: Last Taken:NOT GIVEN IN THE HOSPITAL Time: Lamotrigine (Lamictal) 100 MG TABLET 100 Milligram ORAL TWICE DAILY Qty = 30 Comments: Last Taken:04/14/17 Time:0800 Trazodone HCl (Trazodone HCl) 50 MG TABLET 150 Milligram ORAL Every night Qty = 45 Comments: Last Taken:04/13/17 Time:2130 Simvastatin (Simvastatin*) 40 MG TABLET 1 Tablet ORAL Every night Qty = 30 Comments: Last Taken:04/13/17 Time:1600 Olanzapine (Zyprexa) 7.5 MG TABLET 1 Tablet ORAL Every night Qty = 15 Comments: Last Taken:04/13/17 Time:2130 Risperidone (Risperidone) 3 MG TABLET 3 Milligram ORAL Every night Qty = 15 Comments: Last Taken:04/13/17 Time:2130 Benztropine Mesylate (Benztropine Mesylate) 0.5 MG TABLET 0.5 Milligram ORAL TWICE DAILY Qty = 30 Comments: Last Taken:04/14/17 Time:0800 Start taking the following new medications: Oxycodone HCl/Acetaminophen (Oxycodone-Acetaminophen 5-325) 5 MG-325 MG TABLET 1 Tablet ORAL EVERY 4-6 HOURS NEEDED Qty = 30 No Refills Docusate Sodium (Colace) 100 MG CAPSULE 1 Capsule ORAL TWICE DAILY Qty = 60 No Refills Polyethylene Glycol 3350 (Miralax) 17 GRAM/DOSE POWDER 17 Gram ORAL DAILY Qty = 255 No Refills Instructions: mix with water, juice, soda, coffee or tea Copies To: Nigel BECKER,Maria R Prakash Jr., MD,Yony Mckinney
--- NOTE | 2017-07-11 07:22 | RADIOLOGY REPORT ---
EXAMINATION: XR PORTABLE CHEST CLINICAL INFORMATION: Status post right upper lobectomy. Status post chest tube removal 07/10/2017 at 10:00 AM COMPARISON: Portable chest 07/10/2017 at 0548 hours, portable chest 07/09/2017, portable chest 07/08/2017. TECHNIQUE: Portable upright AP view of the chest was obtained. FINDINGS: There is been interval removal right chest tube since prior chest radiographs 07/10/2017. Lung volumes are low. There is no visible pneumothorax and no interval airspace consolidation. The vascularity is normal. Left port with tip at confluence of brachiocephalic veins is stable. Heart size is within normal. IMPRESSION: 1. No pneumothorax status post removal right chest tube. 2. Low lung volumes. No interval airspace consolidation. Vascularity unremarkable.
[2017-07-11 08:00] VITALS: BP 98/60
--- NOTE | 2017-07-11 08:19 | PN- General Surgery ---
Subjective Subjective: Feels well with no breast complaints Objective Vital Signs and I&Os Vital Signs Date Time Temp Pulse Resp B/P B/P Pulse O2 O2 Flow FiO2 Mean Ox Delivery Rate 07/11 0400 94 Nasal 2.0L Cannula 07/11 0000 94 Nasal 2.0L Cannula 07/11 0000 97.4 88 88 92/50 94 Nasal 2.0L Cannula 07/10 2200 93 Room Air Room Air 07/10 2000 93 Room Air Room Air 07/10 1615 92 Room Air Room Air 07/10 1615 97 Nasal 5.0L Cannula 07/10 1600 98 Room Air Room Air 07/10 1600 96.7 82 20 96/50 94 Room Air Room Air 07/10 1200 94 Room Air Room Air 07/10 0821 95 Nasal 2.0L Cannula Intake & Output 07/11 1600 07/11 0800 07/11 0000 07/10 1600 07/10 0800 07/10 0000 Intake Total 059 002 9552 200 600 Output Total 1300 441 262 9864 725 Balance -1180 20 700 -840 -125 Intake, Oral 505 242 8787 200 600 Number 1 1 Bowel Movements Output, Chest 40 50 Tube Drainage Output, 200 Emesis Output, Stool 550 Output, Urine [phone] 475 Assessment/Plan Assessment/Plan Patient is doing well post operatively after a right lumpectomy and sentinel node biopsy. Incisions are well healed with minimal ecchymosis. Dressings removed and steristrips left in place. No further dressing needed. Follow up one week. Core Measures Venous Thromboembolism VTE Risk Factors Surgery No Mechanical VTE Prophylaxis d/t N/A MechProphylax Ordered No VTE Pharm Prophylaxis d/t NA PharmProphylax ordered
--- NOTE | 2017-07-11 10:58 | PN- Pulmonary ---
Subjective HPI/Critical Care Issues: Doing ok afebrile Objective Current Medications: Current Medications Sig/Ronnie Start time Last Medication Dose Route Stop Time Status Admin Acetaminophen 1,000 MG Q6H 07/07 1745 AC 07/11 PO 0520 Acetylcysteine 2 ML BID 07/10 0900 AC 07/11 INH 0820 Albuterol Sulfate 3 ML EVERY 4 HRS/AWAKE 07/10 1600 AC 07/11 INH 0820 Albuterol Sulfate 3 ML Q4 07/07 2200 DC 07/10 INH 1125 Albuterol Sulfate 2 PUF Q6P PRN 07/07 1745 AC INH Aspirin 81 MG DAILY 07/08 09 AC 07/11 PO 0900 Atorvastatin Calcium 20 MG 1700 07/08 1700 AC 07/10 PO 1706 Benztropine Mesylate 0.5 MG BID 07/07 2100 AC 07/11 PO 0900 Bisacodyl 10 MG .STK-MED ONE 07/10 1616 DC MA 07/10 1617 Budesonide/ 2 PUF BID 07/07 2100 AC 07/11 Formoterol Fumarate INH 0858 Celecoxib 100 MG BID 07/07 2100 AC 07/11 PO 0900 Docusate Sodium 100 MG BID 07/10 1000 AC 07/10 PO 1208 Gabapentin 300 MG TID 07/07 2100 AC 07/11 PO 0900 Heparin Sodium 5,000 UNIT .STK-MED ONE 07/10 2105 DC (Porcine) IV 07/10 2106 Heparin Sodium 5,000 UNIT Q8 07/07 2200 AC 07/11 (Porcine) SC 0521 Hydromorphone HCl 0.4 MG Q4 HRS NEEDED PRN 07/08 0545 AC 07/10 IV 2047 Lamotrigine 100 MG BID 07/07 2100 AC 07/11 PO 0900 Nicotine 7 MG DAILY 07/08 09 AC TOP Olanzapine 7.5 MG QPM 07/07 2100 AC 07/10 PO 2111 Ondansetron HCl 4 MG Q6P PRN 07/09 1930 AC IV Oxycodone HCl 5 MG Q4 HRS NEEDED PRN 07/07 1745 AC 07/11 PO 0904 Oxycodone HCl 10 MG Q4H PRN 07/07 1745 AC 07/11 PO 0553 Polyethylene Glycol 17 GM DAILY 07/08 0900 AC 07/10 PO 0903 Risperidone 3 MG QPM 07/07 2099 AC 07/10 PO 2111 Trazodone HCl 150 MG QPM 07/07 2099 AC 07/10 PO 2110 Vital Signs & I&O Last 24 Hrs of Vitals and I&O: Vital Signs Date Time Temp Pulse Resp B/P B/P Pulse O2 O2 Flow FiO2 Mean Ox Delivery Rate 07/11 0820 97 Nasal 2.0L Cannula 07/11 0800 95 Nasal 2.0L Cannula 07/11 0800 97.1 72 14 98/60 95 Nasal 2.0L Cannula 07/11 0400 94 Nasal 2.0L Cannula 07/11 0000 94 Nasal 2.0L Cannula 07/11 0000 97.4 88 88 92/50 94 Nasal 2.0L Cannula 07/10 2200 93 Room Air Room Air 07/10 2000 93 Room Air Room Air 07/10 1615 92 Room Air Room Air 07/10 1615 97 Nasal 5.0L Cannula 07/10 1600 98 Room Air Room Air 07/10 1600 96.7 82 20 96/50 94 Room Air Room Air 07/10 1200 94 Room Air Room Air Intake & Output 07/11 1600 07/11 0800 07/11 0000 Intake Total 120 570 Output Total 1300 550 Balance -1180 20 Intake, Oral 120 570 Number 1 Bowel Movements Output, Stool 550 Output, Urine 1300 Patient 166 lb Weight Weight Bed scale Measurement Method Impression/Plan Impression/Plan Impression/Plan: 62-year-old status post thoracotomy in the setting of COPD as increasing congestion and resumption of low flow oxygen and 62-year-old status post thoracotomy in the setting of COPD has increasing congestion Improving Wean off oxygen cont incentive spirometry Stable
[2017-07-11 16:00] VITALS: BP 92/50
[2017-07-12] VITALS: BP 140/80
[2017-07-12 07:50] VITALS: BP 122/68
--- NOTE | 2017-07-12 07:51 | PN- General Surgery ---
Subjective Subjective: PATIETN DOING WELL AMBULATED AND MAINTAINED O2 SAT AT 94% STILL PRODUCTIVE COUGH DENIES SOB Review of Systems: no fevers or chills productive cough Objective Vital Signs and I&Os Vital Signs Date Time Temp Pulse Resp B/P B/P Pulse O2 O2 Flow FiO2 Mean Ox Delivery Rate 07/12 0000 93 Nasal 2.0L Cannula 07/12 0000 97.6 82 22 140/80 93 Nasal 2.0L Cannula / 1640 94 Room Air Room Air 07/11 1600 97.6 90 20 92/50 96 Room Air 07/11 1215 94 Room Air 07/11 0820 97 Nasal 2.0L Cannula 07/11 0800 95 Nasal 2.0L Cannula 07/11 0800 97.1 72 14 98/60 95 Nasal 2.0L Cannula Intake & Output 07/12 0800 06/ 0000 06/ 1600 06/02 0800 06/ 0000 06/ 1600 Intake Total 100 600 800 774 495 5796 Output Total 709 401 9758 550 300 Balance 100 200 200 -1180 20 700 Intake, IV 0 Intake, Oral 100 600 800 501 541 8250 Number 0 1 1 1 Bowel Movements Output, Stool 550 Output, Urine 944 399 9944 300 Patient 165 lb 166 lb Weight Weight Bed scale Measurement Method Physical Exam: ALERT AND ORIENTED, LYING IN BED RIGHT LATERAL CHEST WOUND -CDI NO DRAINAGE, DRESSING CHANGED CHEST -RHONCHI THAT CLEARS WITH COUGH HEART -RRR WITHOUT MRG ABDOMEN SOFT BILATERAL LOWER EXTREMITIES -NO EDEMA, CALVES SOFT Assessment/Plan Assessment/Plan POD5 RIGHT BREAST LUMPECTOMY, RUL D/C PLANNING FOR TODAY, HOME WITH SERVICES sputum cx with gram neg rods, started on ceftin as outpatient per Dr. Espinoza, Dr. Prakash aware Core Measures Venous Thromboembolism VTE Risk Factors Surgery No Mechanical VTE Prophylaxis d/t N/A MechProphylax Ordered No VTE Pharm Prophylaxis d/t NA PharmProphylax ordered
[2017-07-12] MEDS ORDERED: IBUPROFEN400 M1 PO (07:57)
[2017-07-12] MEDS ORDERED: TYLENOL325 M1 PO (07:57)
[2017-07-12] MEDS ORDERED: GABAPENTIN300 M2 PO (07:57)
--- NOTE | 2017-07-12 10:20 | PN- Pulmonary ---
Subjective HPI/Critical Care Issues: Doing well sats better Occ cough Objective Current Medications: Current Medications Sig/Ronnie Start time Last Medication Dose Route Stop Time Status Admin Acetaminophen 1,000 MG Q6H 07/07 1745 AC 07/12 PO 0547 Acetylcysteine 2 ML Q4-PRN PRN 07/11 1715 AC INH Acetylcysteine 2 ML BID 07/10 0900 DC 07/11 INH 0820 Albuterol Sulfate 3 ML EVERY 4 HRS/AWAKE 07/10 1600 AC 07/12 INH 0914 Albuterol Sulfate 2 PUF Q6P PRN 07/07 174 AC INH Aspirin 81 MG DAILY 07/08 09 AC 07/12 PO 0745 Atorvastatin Calcium 20 MG 1700 07/08 1700 AC 07/11 PO 1824 Benztropine Mesylate 0.5 MG BID 07/07 2099 AC 07/12 PO 0744 Budesonide/ 2 PUF BID 07/07 2100 AC 07/12 Formoterol Fumarate INH 0746 Celecoxib 100 MG BID 07/07 2099 AC 07/12 PO 0745 Docusate Sodium 100 MG BID 07/10 1000 AC 07/10 PO 1208 Gabapentin 300 MG TID 07/07 2100 AC 07/12 PO 0745 Heparin Sodium 5,000 UNIT Q8 07/07 2200 AC 07/12 (Porcine) SC 0544 Hydromorphone HCl 0.4 MG Q4 HRS NEEDED PRN 07/08 0545 AC 07/10 IV 2047 Lamotrigine 100 MG BID 07/07 2100 AC 07/12 PO 0745 Nicotine 7 MG DAILY 07/08 09 AC TOP Olanzapine 7.5 MG QPM 07/07 2100 AC 07/11 PO 1827 Ondansetron HCl 4 MG Q6P PRN 07/09 1930 AC IV Oxycodone HCl 5 MG Q4 HRS NEEDED PRN 07/07 1745 AC 07/12 PO 0744 Oxycodone HCl 10 MG Q4H PRN 07/07 174 AC 07/11 PO 0553 Polyethylene Glycol 17 GM DAILY 07/08 09 AC 07/10 PO 0903 Risperidone 3 MG QPM 07/07 2100 AC 07/11 PO 1827 Trazodone HCl 150 MG QPM 07/07 2100 AC 07/11 PO 1824 Vital Signs & I&O Last 24 Hrs of Vitals and I&O: Vital Signs Date Time Temp Pulse Resp B/P B/P Pulse O2 O2 Flow FiO2 Mean Ox Delivery Rate 07/12 0927 94 Room Air 07/12 0800 94 Room Air 07/12 0750 97.7 92 20 122/68 94 Room Air 07/12 0000 93 Nasal 2.0L Cannula / 0000 97.6 82 22 140/80 93 Nasal 2.0L Cannula 07/11 1640 94 Room Air Room Air 07/11 1600 97.6 90 20 92/50 96 Room Air 07/11 1215 94 Room Air Intake & Output 07/12 1600 07/12 0800 06 0000 Intake Total 100 600 Output Total 400 Balance 100 200 Intake, IV 0 Intake, Oral 100 600 Number 0 Bowel Movements Output, Urine 400 Patient 165 lb Weight Impression/Plan Impression/Plan Impression/Plan: 62-year-old status post thoracotomy in the setting of COPD as increasing congestion and resumption of low flow oxygen and 62-year-old status post thoracotomy in the setting of COPD has increasing congestion IMPRESSION PT with sig smoking and other med issues as noted by houseofficer with * Stage IIIa NSCLCA s/p chemo xrt with complete response now s/p curative surg with right upper lobectomy with mediastinal lymph node dissection * Right side partial mastectomy and lymph node biopsy * DOing well post op * Smoking uptill yesterday with no sig copd by PFT but has sig chronic bronchitis with good performance status * Schizoaffective dz vs schizophrenia, stable recent exacerbation requiring psych admission in 03/29 stable * Hyperlipedemia / Insomnia and chronic pain stable REC Improving cont incentive spirometry Stable ok to dc
[2017-07-12] MEDS ORDERED: CEFUROXIME500 MG PO (12:18)
[2017-07-12 16:00] VITALS: BP 122/64
== END 2017-07-12 19:30 | disposition home health service (06) | DRG 164 ==
LOC: SDA 01:17 → CRI 01:17 → STS 07:00 → EDSTATUS 07:00 → SDA 07:00 → ENRESERV 16:27 → ENTRNSPT 16:57 → CMPTRNSPT 17:06 → CRI 17:24 → STS 07-10 07:00 → CRI 07-12 19:30
PROVIDERS: Nurse Practitioner; Physician Assistant Surgical
PROC: 0BBC0ZZ Excision of Right Upper Lung Lobe, Open Approach (ICD-10-PCS; principal; 2017-07-07)
PROC: 07B80ZX Excision of Right Internal Mammary Lymphatic, Open Approach, Diagnostic (ICD-10-PCS; 2017-07-07)
PROC: 0HBT0ZZ Excision of Right Breast, Open Approach (ICD-10-PCS; 2017-07-07)
PROC: 0HBT3ZX Excision of Right Breast, Percutaneous Approach, Diagnostic (ICD-10-PCS; 2017-07-07)
PROC: 0W9900Z Drainage of Right Pleural Cavity with Drainage Device, Open Approach (ICD-10-PCS; 2017-07-07)
DX: C34.91 Malignant neoplasm of unspecified part of right bronchus or lung (principal); J95.811 Postprocedural pneumothorax; J95.812 Postprocedural air leak; C50.911 Malignant neoplasm of unspecified site of right female breast; F17.210 Nicotine dependence, cigarettes, uncomplicated; J44.9 Chronic obstructive pulmonary disease, unspecified; Y83.9 Surgical procedure, unspecified as the cause of abnormal reaction of the patient, or of later complication, without mention of misadventure at the time of the procedure; I10 Essential (primary) hypertension; F41.9 Anxiety disorder, unspecified; F32.9 Major depressive disorder, single episode, unspecified; T81.82XA Emphysema (subcutaneous) resulting from a procedure, initial encounter; E78.5 Hyperlipidemia, unspecified; Z88.6 Allergy status to analgesic agent; Z88.5 Allergy status to narcotic agent; Z88.8 Allergy status to other drugs, medicaments and biological substances; Z79.82 Long term (current) use of aspirin; Z79.51 Long term (current) use of inhaled steroids; D64.9 Anemia, unspecified; G47.00 Insomnia, unspecified; G47.33 Obstructive sleep apnea (adult) (pediatric); F20.9 Schizophrenia, unspecified
CPT/HCPCS: CCU; 36415; 71045; 76942; 77065-RT; 82436; 87070; 87071; 87086; 88305; 88307; 97110-GO; 97116-GO; 97162-GP; A9520; C9290; C9399; J0131; J0690; J1644; J2001; J3490; J7042; J7608; Q9968